=== PATIENT | male | born 1960 | race Caucasian/White ===

== ENCOUNTER 2018-07-30 15:40 | Inpatient (IN) | payer OTHER ==
[~2018-07-30] VITALS: Ht 157.5 cm; Wt 59.4 kg
--- NOTE | 2018-07-30 15:45 | NUR ---
PT ANOOP TUCKER FROM [facility] FOR LOW BLOOD PRESSURE, PT IS AAOX0, MECH DEPENDENT, RT AT BEDISIDE FOR VENT SET UP, HOOKED TO DIRECTOR LEARNING SERVICES, V/S STABLE, KEPT RESTED AND COMFORTABL, WILL CONTINUE TO MONITOR.
--- NOTE | 2018-07-30 15:50 | NUR ---
SEEN AND EXAMINED BY DR. BOLES.
--- NOTE | 2018-07-30 16:00 | NUR ---
LABS DRAWNED AND SENT TO LAB.
[2018-07-30 16:01] VITALS: BP 101/63
[2018-07-30] MEDS ORDERED: IV NS 0.9% 250 ML IV ONE ×2 (16:30→18:00)
[2018-07-30 16:39] LABS: BASOPHILS % (AUTO) 0.2 % (0.0-2.0); EOSINOPHILS % (AUTO) 11.3 % (0.0-6.0); HEMATOCRIT 28 % (39-51); HEMOGLOBIN 9.1 g/dL (13.5-17.5); LYMPHOCYTES # (AUTO) 2.1 /CMM (0.8-4.8); LYMPHOCYTES % (AUTO) 17.6 % (20.0-44.0); MEAN CORPUSCULAR HGB CONC 33 g/dl (31.0-36.0); MEAN CORPUSCULAR VOLUME 95 fL (80-96); MONOCYTES # (AUTO) 0.8 /CMM (0.1-1.30); MONOCYTES % (AUTO) 6.5 % (2.0-12.0); NEUTROPHILS # (AUTO) 7.8 /CMM (1.8-8.9); NEUTROPHILS % (AUTO) 64.4 % (43.0-81.0); PLATELET COUNT (AUTO) 466 /CMM (150-450); RED BLOOD CELL COUNT(AUTO) 2.91 MIL/uL (4.5-6.0); WHITE BLOOD COUNT (AUTO) 12.1 K/uL (4.3-11.0)
[2018-07-30 16:57] LABS: ALBUMIN 1.9 g/dL (3.4-5.0); BILIRUBIN,TOTAL 0.2 mg/dL (0.2-1.0); CALCIUM, SERUM 9.2 mg/dL (8.5-10.1); CREATININE 1.5 mg/dL (0.6-1.3); POTASSIUM 2.9 mmol/L (3.5-5.1); TOTAL PROTEIN, SERUM 6.8 g/dL (6.4-8.2)
[2018-07-30 17:07] LABS: APPEARANCE,URINE Slightly Cloudy (CLEAR); BILIRUBIN,URINE Negative (NEGATIVE); BLOOD, URINE Moderate Ery/uL (NEGATIVE); COLOR,URINE Yellow (YELLOW); KETONES,URINE Negative (NEGATIVE); LEUKOCYTE ESTERASE ,URINE Small (NEGATIVE); NITRITE, URINE Negative (NEGATIVE); PH,URINE 5.5 (5.0-8.0); PROTEIN,URINE 100 mg/dl (NEGATIVE); UGLUCOSE Negative (NEGATIVE); UROBILINOGEN,URINE 0.2 EU/dL (0.2)
[2018-07-30] MEDS ORDERED: ZINC220C8 GT (17:20)
[2018-07-30] MEDS ORDERED: OMEP40CA37 GT (17:20)
[2018-07-30] MEDS ORDERED: BISA10SU8 RC (17:20)
[2018-07-30] MEDS ORDERED: ACET-868 GT (17:20)
[2018-07-30] MEDS ORDERED: DOCU50LI GT (17:20)
[2018-07-30] MEDS ORDERED: AMIO200T4 GT (17:20)
[2018-07-30] MEDS ORDERED: METO5SOL GT (17:20)
[2018-07-30] MEDS ORDERED: HYDR-4384 GT (17:20)
[2018-07-30] MEDS ORDERED: FERR300L GT (17:20)
[2018-07-30] MEDS ORDERED: METO25TA20 GT (17:20)
[2018-07-30] MEDS ORDERED: FOLI0.8T2 GT (17:20)
[2018-07-30] MEDS ORDERED: ONDA4TAB5 GT (17:20)
[2018-07-30] MEDS ORDERED: NA P133E RC (17:20)
[2018-07-30] MEDS ORDERED: BACL10TA GT (17:20)
[2018-07-30] MEDS ORDERED: HEPA50008 SQ (17:20)
[2018-07-30] MEDS ORDERED: MAGN400O6 GT (17:20)
[2018-07-30 17:24] VITALS: BP 99/61
[2018-07-30 17:34] LABS: BACTERIA,URINE Few /HPF (None Seen); SQUAMOUS EPITHELIAL CELL,UR Few /HPF (None Seen)
[2018-07-30 17:41] LABS: BAND % (MANUAL) 17 % (0.0-5.0); EOSINOPHILS % (MANUAL) 8 % (0-4); LYMPHOCYTES % (MANUAL) 14 % (16-48); MONOCYTES % (MANUAL) 9 % (0-11.0); NEUTROPHILS % (MANUAL) 52 (42-76)
[2018-07-30] MEDS ORDERED: PIPERACILLIN /TAZOBACTAM 3.375 G in IV D5W 50 ML IV ONE (18:00)
[2018-07-30] MEDS ORDERED: VANCOMYCIN 1 GM in IV D5W 250 ML IV ONE (18:00)
--- NOTE | 2018-07-30 19:03 | NUR ---
REPORT GIVEN TO CHRISTIANE STILL FOR SHARLENE.
[2018-07-30 19:40] VITALS: BP 101/61
--- NOTE | 2018-07-30 19:41 | NUR ---
[facility], NO RESP DISTRESS OR SOB NOTED. SX'D FOR MOD AMT OF PALE YELLOW SECRETIONS. ALARMS ARE SET AND AUDIBLE. VENT PLUGGED INTO RED OUTLET. AMBU BAG BEDSIDE. WILL CONTINUE TO MONITOR. Addendum: 07/30/18 at 1943 by ZANDRA NIXON RT Amended: Links added.
--- NOTE | 2018-07-30 19:53 | NUR ---
VENT SETTINGS: RATE 16 TV 500ML O2 40% PEEP 5 CMH20
[2018-07-30] MEDS ORDERED: ONDANSETRON HCL/PF 4 MG/2 ML VIAL IVP PRN (20:00)
[2018-07-30] MEDS ORDERED: MAG HYDROX/AL HYDROX/SIMETH 30 ML UDC GT PRN (20:00)
[2018-07-30] MEDS ORDERED: IPRATROPIUM NEB FS 0.5 MG/2.5 ML AMPUL.NEB NEB PRN (20:30)
[2018-07-30] MEDS ORDERED: DEXTROSE 50%-WATER 50 ML DISP.SYRIN IV PRN (20:30)
[2018-07-30] MEDS ORDERED: ALBUTEROL FS 2.5 MG/0.5 ML VIAL.NEB NEB PRN (20:30)
[2018-07-30] MEDS ORDERED: IV NS 0.9% 1,000 ML IV PRN (20:30)
[2018-07-30] MEDS: PIPERACILLIN /TAZOBACTAM 2.25 G in IV D5W 50 ML IV SCH (21:00)
--- NOTE | 2018-07-30 21:00 | NUR ---
REPORT GIVEN TO CHRISTIANE TRACY FOR SHARLENE
[2018-07-30 21:25] VITALS: BP 103/65
[2018-07-30 21:41] VITALS: BP_SYST 101; BP_SYST 94; BP_DIAS 59; BP_DIAS 61
[2018-07-30 21:43] VITALS: BP 103/65
[2018-07-30] MEDS: IV NS 0.9% 1,000 ML IV PRN (22:17)
[2018-07-30] MEDS: HEPARIN SODIUM, PORCINE 5000 UNITS/1 ML VIAL SQ SCH (22:18)
--- NOTE | 2018-07-30 22:21 | NUR ---
TD RN NOTES CALLED PHARMACY REGARDING ZOSYN. PER PHARMACY VÍCTOR, SKIP THE DOSE FOR NOW AND GIVE IN AM.
--- NOTE | 2018-07-30 22:39 | NUR ---
TD RN NOTES RECEIVED PT ON BED. A/O X1. [facility] SETTING SATURATING WELL. NO RESPIRATORY DISTRESS NOTED. IV ACCESS ON RFA G20 NS @ 75CC/HR, HD ACCESS ON RIC AV SHUNT. GTUBE SITE, NO REDNESS NOTED. PT NPO FOR NOW. HEAD OF BED ELEVATED. SIDE RAILS UP. CALL LIGHT WITHIN REACH. BED ALARM ON. WILL CONTINUE TO MONITOR PT CLOSELY.
[2018-07-30] MEDS ORDERED: NEPRO 1,000 ML BOTTLE GT PRN (23:00)
[2018-07-30] MEDS: BLOOD SUGAR DIAGNOSTIC 1 EACH STRIP IN SCH (23:21)
[2018-07-31 04:00] VITALS: BP 112/70
[2018-07-31] MEDS ORDERED: PIPERACILLIN /TAZOBACTAM 2.25 G VIAL IV ONE (04:24)
[2018-07-31] MEDS: PIPERACILLIN /TAZOBACTAM 2.25 G in IV D5W 50 ML IV SCH ×3 (05:03→21:12)
[2018-07-31] MEDS: BLOOD SUGAR DIAGNOSTIC 1 EACH STRIP IN SCH ×3 (05:05→17:28)
--- NOTE | 2018-07-31 05:15 | NUR ---
TD RN NOTES SPOKE TO [facility], PER NURSE KEEP [facility] VENT FOR NOW AND BRING TOGETHER WITH THE PT WHEN D/C.
[2018-07-31 06:32] LABS: BASOPHILS # (AUTO) 0.1 /CMM (0.0-0.2); BASOPHILS % (AUTO) 1.2 % (0.0-2.0); EOSINOPHILS % (AUTO) 8.9 % (0.0-6.0); HEMATOCRIT 27 % (39-51); HEMOGLOBIN 9.1 g/dL (13.5-17.5); LYMPHOCYTES # (AUTO) 1.6 /CMM (0.8-4.8); LYMPHOCYTES % (AUTO) 15.2 % (20.0-44.0); MEAN CORPUSCULAR HGB CONC 34 g/dl (31.0-36.0); MEAN CORPUSCULAR VOLUME 95 fL (80-96); MONOCYTES # (AUTO) 0.7 /CMM (0.1-1.30); MONOCYTES % (AUTO) 6.4 % (2.0-12.0); NEUTROPHILS # (AUTO) 7.3 /CMM (1.8-8.9); NEUTROPHILS % (AUTO) 68.3 % (43.0-81.0); PLATELET COUNT (AUTO) 389 /CMM (150-450); RED BLOOD CELL COUNT(AUTO) 2.84 MIL/uL (4.5-6.0); WHITE BLOOD COUNT (AUTO) 10.8 K/uL (4.3-11.0)
--- NOTE | 2018-07-31 06:45 | NUR ---
TD RN NOTES NO ACUTE CHANGES NOTED DURING THE SHIFT. PROVIDED COMFORT AND SAFETY. WILL ENDORSE TO THE AM NURSE FOR CONTINUITY OF CARE.
[2018-07-31 07:16] LABS: CALCIUM, SERUM 9.1 mg/dL (8.5-10.1); CREATININE 1.3 mg/dL (0.6-1.3); MAGNESIUM 2.2 mg/dL (1.8-2.4); PHOSPHORUS 3.1 mg/dL (2.5-4.9)
[2018-07-31 07:39] LABS: POTASSIUM 2.8 mmol/L (3.5-5.1)
--- NOTE | 2018-07-31 07:40 | NUR ---
RT PT REC'D TRACHED ON [facility] VENT ON AC MODE, NO RESP DISTRESS OR SOB NOTED AT THIS TIME. SX'D FOR SCANT AMT OF PALE YELLOW SECRETIONS. ALARMS ARE SET AND AUDIBLE. VENT PLUGGED INTO RED OUTLET. AMBU BAG BEDSIDE. WILL CONTINUE TO MONITOR. Addendum: 07/31/18 at 0741 by VICTOR M RAM RT Amended: Links added.
--- NOTE | 2018-07-31 07:42 | NUR ---
DESTINEE RN NOTE RECEIVED PATIENT IN BED, OBTUNDED M WITH TRACH TO VENT SETTING ORDERED , AMBU BAG AT HOB AT ALL TIME , ON TELE MONITOR SR HR 89 , WITH ELLER CATH TO GRAVITY WITH YELLOW COLOR URINE , ON G TUBE FEEDING ORDERED, KEEP HOB ELEVATED AT ALL TIME , K 2.[address] BURNETTE ORDERED KCL 40 VIA G TUBE TIME ONE ORDER CARRIED OUT BED IN LOWEST AND LOCKED POSITION , LT UA AV SHUNT IN PACE WILL CONT TO MONITOR CLOSELY
[2018-07-31 08:00] VITALS: BP 107/62
[2018-07-31] MEDS ORDERED: POTASSIUM CHLORIDE 20 MEQ POWDER PACKET GT ONE (08:00)
[2018-07-31] MEDS: PANTOPRAZOLE 40 MG VIAL IV SCH (08:04)
[2018-07-31] MEDS: HEPARIN SODIUM, PORCINE 5000 UNITS/1 ML VIAL SQ SCH ×2 (08:05→21:14)
[2018-07-31] MEDS ORDERED: FEE PK DOSING 1 MIN EA MC ONE (08:21)
--- NOTE | 2018-07-31 09:09 | NUR ---
WOUND CARE CONSULT: PT HAVING DIALYSIS AT THIS TIME. REVIEWED MULTIPLE ADMISSION PHOTOS SHOWING MULTIPLE WOUNDS, PRESENT ON ADMISSION. RECOMMEND SURGICAL CONSULT AND DPM CONSULT. DR REBECCA CAVANAUGH NOTIFIED OF SURGICAL CONSULT REQUEST AND DR DOWNING NOTIFIED OF DPM CONSULT REQUEST. WILL SEE PT PT CONDITION PERMITS. FIRST STEP LOW AIRLOSS MATTRESS ORDERED. RECOMMENDATIONS MADE FOR SKIN PROTECTION AND DISCUSSED WITH NURSING STAFF. MD IN AGREEMENT WITH PLAN OF CARE. Addendum: 07/31/18 at 1104 by DOT VALLEJO WNDNU RECOMMENDATIONS FOR WOUND CARE WERE MADE BASED ON PHOTO DOCUMENTATION.
[2018-07-31 09:15] LABS: THYROID STIMULATING HORMONE 2.159 uIU/mL (0.358-3.74)
[2018-07-31] MEDS ORDERED: Z GUARD REMEDY 2 OZ OINT TP PRN (09:30)
--- NOTE | 2018-07-31 09:50 | NUR ---
RT NOTE PATIENT CURRENTLY ON DIALYSIS. ABG ORDER NOT DONE.
--- NOTE | 2018-07-31 10:00 | NUR ---
JAMES RN NOTE ON HD AT THIS TIME
[2018-07-31] MEDS: Z GUARD REMEDY 2 OZ OINT TP SCH (10:14)
[2018-07-31] MEDS ORDERED: HYDROGEL DRESSING 90 GM TUBE TP PRN (11:00)
--- NOTE | 2018-07-31 11:30 | NUR ---
DESTINEE RN NOTE HD COMPLETED, NO FLUIDS OUT, BP 104/78 HR 90
[2018-07-31 12:00] VITALS: BP 97/52
[2018-07-31] MEDS: HYDROGEL DRESSING 90 GM TUBE TP SCH (12:31)
[2018-07-31 12:53] LABS: ABG BASE EXCESS 2.4 mmol/L; ABG OXYGEN SATURATION 98.9 % (92.0-98.5); ABG PCO2 35.9 mmHg (35.0-45.0); ABG PH 7.477 (7.350-7.450); ABG PO2 223.7 mmHg (75.0-100.0); AaDO2 20.2 mmHg; COHb 0.2 % (0.5-1.5); MetHb 0.6 % (0.0-1.5); O2Hb 98.1 % (94.0-97.0); PEEP,BG 5 cm H2O; SITE, ABG Right Radial; VENT MODE, BG AC 16 500 40% +5; VT, ABG 500 mL
[2018-07-31] MEDS: IV NS 0.9% 1,000 ML IV PRN (14:20)
--- NOTE | 2018-07-31 14:22 | NUR ---
DESTINEE GRANDE NOTE SEEN BY PRITESH GRANDE TITLE SEARCH MANAGER AWARE THAT T EARLIER T 99.7 K 2.8 ALSO AWARE THAT K WAS REPLACED STATED THAT WILL CHECK IT OUT NO NEW ORDER AT THIS TIME AWARE ABG RESULT FOR TODAY WILL CONT TO MONITOR CLOSELY
[2018-07-31] MEDS: VANCOMYCIN 500 MG in IV D5W 100 ML IV PRN (14:29)
--- NOTE | 2018-07-31 15:25 | NUR ---
DESTINEE RN NNOTE SEEN BY PAT SURGERY RN SCHEDULING ADMINISTRATOR WOUND CARE DONE WITH NEW TX ORDER WILL BE GIVEN
--- NOTE | 2018-07-31 15:30 | NUR ---
DESTINEE RN NOTE PER DIETARY OK TO DO G TUBE FEEDING AT 40 ML PER HOUR
[2018-07-31 16:00] VITALS: BP 91/50
--- NOTE | 2018-07-31 18:25 | NUR ---
DESTINEE RN NOTE ALL NEEDS ATTENDED, CONT ON GTUBE FEEDING AT 40 ML PER HOUR NO,RESIDUAL KEEP HOB ELEVATED AT ALL TIME .KEEP CLEAN DRY, ON [employer] MATRASS PLACED ORDERED ,WILL CONT TO MONITOR CLOSELY
--- NOTE | 2018-07-31 19:45 | NUR ---
PATIENT RECEIVED TRACHED PORTEX 8 ON MECHANICAL VENTILATION WITH NOTED SETTINGS. AMBU BAG @ BEDSIDE. VENT PLUGGED TO RED OUTLET. ALARMS ON AND AUDIBLE. SUCTIONED SMALL AMOUNT OF THICK YELLOW SECRETIONS. NO RESPIRATORY DISTRESS NOTED AT THIS TIME. WILL MONITOR T/O SHIFT.
[2018-07-31 20:00] VITALS: BP 92/48
--- NOTE | 2018-07-31 20:00 | NUR ---
DESTINEE/RN NOTES: RECEIVED PT. IN BED W/HOB ELEVATED. OBTUNDED. ON MECH. VENT. TOLERATING SETTING WELL. ON TELE MONITOR W/ SR. ON ASPIRATION PRECAUTION. ON GTF TOLERATING WELL W/ NO RESIDUAL NOTED. HAD DIALYSIS TODAY W/ NO FLUIDS OUT. HAS RIC AV SHUNT IN PLACE. W/ F/C INPLACE DRAINING TO SAGAR YELLOW URINE. HAS MULTIPLE WOUNDS. INCONTINENT OF B/B. TURNED AND REPOSITIONED. WILL CONTINUE TO MONITOR.
[2018-08-01] VITALS: BP 91/49
[2018-08-01] MEDS: BLOOD SUGAR DIAGNOSTIC 1 EACH STRIP IN SCH ×5 (00:20→23:57)
[2018-08-01 04:00] VITALS: BP 127/53
[2018-08-01] MEDS: PIPERACILLIN /TAZOBACTAM 2.25 G in IV D5W 50 ML IV SCH ×3 (04:51→20:59)
[2018-08-01] MEDS: IV NS 0.9% 1,000 ML IV PRN ×2 (04:55→19:42)
--- NOTE | 2018-08-01 07:23 | NUR ---
DESTINEE/RN NOTES: REPORT GIVEN TO NEXT SHIFT NURSE FOR SHARLENE.
--- NOTE | 2018-08-01 07:30 | NUR ---
RN NOTES RECEIVED PATIENT, OBTUNDED. VENT DEPENDENT, TOLERATING CURRENT SETTINGS. NO SOB AND DISTRESS NOTED. SINUS RHYTHM ON THE MONITOR, HR ON THE 80'S. WITH ONGOING GTF OF NEPHRO AT 35 CC/HR. SITE. GT PLACEMENT CONFIRMED BY AUSCULTATION AND ASPIRATING GASTRIC CONTENT:NO GASTRIC RESIDUAL TAKEN AT THIS TIME. RFA G20 IN PLACE AND INTACT SITE CLEAN ,DRY AND INTACT. NO INFILTRATION NOTED. FLUSHING WELL. RIC AV SHUNT: WITH BRUIT AND THRILL. ELLER CATH DRAINING VIA GRAVITY, IN PLACE AND INTACT. SAFETY MEASURES OBSERVED AND MAINTAINED. HOB ELEVATED FOR ASPIRATION PRECAUTION. BED LOW AND LOCKED POSITION. CALL LIGHT WITHIN REACH. WILL CONTINUE TO MONITOR PATIENT
[2018-08-01 08:00] VITALS: BP_SYST 90; BP_DIAS 47; BP_DIAS 77
[2018-08-01] MEDS: HEPARIN SODIUM, PORCINE 5000 UNITS/1 ML VIAL SQ SCH ×2 (08:48→21:01)
[2018-08-01] MEDS: PANTOPRAZOLE 40 MG VIAL IV SCH (08:48)
[2018-08-01] MEDS: HYDROGEL DRESSING 90 GM TUBE TP SCH (08:49)
[2018-08-01] MEDS: Z GUARD REMEDY 2 OZ OINT TP SCH (08:49)
[2018-08-01 12:00] VITALS: BP 102/59
--- NOTE | 2018-08-01 15:30 | NUR ---
DESTINEE RN NOTES REPORT TAKEN FROM CHRISTIANE VELAZCO FOR SHARLENE.PT CAN OPEN THE EYES [facility] VENTILATOR.ON SR.NO SOB AND ACUTE DISTRESS NOTED.FC IS IN PLACE.WITH G TUBE FEEDING.TOLERATING WELL.IV LINE IS ON RFA G20 AND LEFT UA AV SHUNT.WILL CONTINUE TO MONITOR THE PT CLOSELY.
--- NOTE | 2018-08-01 15:45 | NUR ---
RN NOTES ENDORSED PATIENT TO CHRISTIANE SHERWOOD FOR CONTINUITY OF CARE
[2018-08-01 16:00] VITALS: BP 101/56
[2018-08-01] MEDS: LACTOBACILLUS RHAMNOSUS GG 1 EACH CAP.SPRINK PO SCH (16:10)
--- NOTE | 2018-08-01 16:24 | NUR ---
RT NOTE: PATIENT RECEIVED TRACH ON MECHANICAL VENT. ALARMS VERIFIED AND AUDIBLE. SUCTIONED LARGE AMOUNT OF THICK ORTIZ SECRETIONS. VENT PLUGGED INTO RED OUTLET. AMBU BAG AT [facility].
[2018-08-01 17:12] LABS: BASOPHILS # (AUTO) 0.1 /CMM (0.0-0.2); BASOPHILS % (AUTO) 0.6 % (0.0-2.0); EOSINOPHILS % (AUTO) 8.2 % (0.0-6.0); HEMATOCRIT 24 % (39-51); LYMPHOCYTES # (AUTO) 1.3 /CMM (0.8-4.8); LYMPHOCYTES % (AUTO) 13.8 % (20.0-44.0); MEAN CORPUSCULAR HGB CONC 33 g/dl (31.0-36.0); MEAN CORPUSCULAR VOLUME 96 fL (80-96); MONOCYTES # (AUTO) 0.8 /CMM (0.1-1.30); MONOCYTES % (AUTO) 8.3 % (2.0-12.0); NEUTROPHILS # (AUTO) 6.7 /CMM (1.8-8.9); NEUTROPHILS % (AUTO) 69.1 % (43.0-81.0); PLATELET COUNT (AUTO) 420 /CMM (150-450); RED BLOOD CELL COUNT(AUTO) 2.53 MIL/uL (4.5-6.0); WHITE BLOOD COUNT (AUTO) 9.8 K/uL (4.3-11.0)
[2018-08-01 17:26] LABS: CALCIUM, SERUM 8.9 mg/dL (8.5-10.1); CREATININE 0.9 mg/dL (0.6-1.3); POTASSIUM 2.9 mmol/L (3.5-5.1)
--- NOTE | 2018-08-01 19:20 | NUR ---
DESTINEE/RN CLOSING NOTES PATIENT IN BED RESTING COMFORTABLY. ON TELE, HR IS 80 WITH SR. PATIENT ON VENTILATOR WITH PRESCRIBED SETTINGS. O2 SATURATION NOTED 99. TRACH INTACT, PATENT, SECURED WITH TRACH TIE. PATIENT OBTUNDED, NON VERBAL. NO S/S OF ACUTE DISTRESS NOTED. RESPIRATION EVEN AND UNLABORED. NO SHORTNESS OF BREATH NOTED. NO S/S OF PAIN OR DISCOMFORT NOTED. IV SITES ON RIGHT FOREARM GAUGE 20 AND LEFT UPPER ARM AV SHUNT NOTED WITH NO S/S OF INFECTION. ALL DUE MEDS GIVEN ORDER. PATIENT TOLERATED WELL. PEG TUBE IN PLACE. PATENT. NO RESIDUAL NOTED. HOB KEPT ELEVATED AT ALL TIME SUCTIONED PATIENT NEEDED. SAFETY MEASURES MAINTAINED. BED AT THE LOWEST POSITION. CALL LIGHT WITHIN REACH. ENDORSED TO NIGHG SHIFT RN FOR SHARLENE
--- NOTE | 2018-08-01 19:30 | NUR ---
RN OPENING NOTES RECEIVED BEDSIDE REPORT, PATIENT IN BED, OBTUNDED AND NON VERBAL. ON VENT, SATING GOOD >90%. ON TELE MONITOR, SR. HAS A ELLER CATH DRAINING THROUGH GRAVITY, YELLOW AND CLEAR URINE. HAS A GTF WITH NEPRO RUNNING AT 40ML/HR. LAST BLOOD SUGAR WAS 117, NO INSULIN COVERAGE WAS GIVEN PER DAY SHIFT. MULTIPLE WOUNDS NOTED FROM CHART. BED LOCKED AND IN LOW POSITION. WILL CONT TO MONITOR CLOSELY.
[2018-08-01 20:00] VITALS: BP 97/55
[2018-08-02] VITALS (9 sets, daily range): BP systolic 93–130; BP diastolic 35–82
[2018-08-02] MEDS: NEPRO 1,000 ML BOTTLE GT PRN (04:24)
[2018-08-02] MEDS: PIPERACILLIN /TAZOBACTAM 2.25 G in IV D5W 50 ML IV SCH ×3 (05:05→21:05)
[2018-08-02] MEDS: HYDROCODONE/APAP 5/325MG 1 EACH TABLET GT PRN (05:23)
--- NOTE | 2018-08-02 05:23 | NUR ---
RN NOTE ADMINISTERED NORCO FOR PATIENT AFTER WOUND CARE.
[2018-08-02] MEDS: BLOOD SUGAR DIAGNOSTIC 1 EACH STRIP IN SCH ×3 (06:31→18:09)
--- NOTE | 2018-08-02 07:02 | NUR ---
RN CLOSING NOTE PATIENT IN BED, OBTUNDED. ON TELE MONITOR, SR. HAS A ELLER WITH CLEAR AND YELLOW URINE. ON VENT WITH SPO2 100%. ON GTF NEPRO AT 40 ML/HR, NO RESIDUAL. NO INSULIN COVERAGE GIVEN. NORCO GIVEN AT 0530 FOR DISCOMFORT. VANCO TROUGH AT 0600. WILL ENDORSE TO DAY SHIFT FOR CONT OF CARE
[2018-08-02 07:09] LABS: BASOPHILS # (AUTO) 0.1 /CMM (0.0-0.2); BASOPHILS % (AUTO) 0.7 % (0.0-2.0); EOSINOPHILS % (AUTO) 9.5 % (0.0-6.0); HEMATOCRIT 23 % (39-51); HEMOGLOBIN 7.6 g/dL (13.5-17.5); LYMPHOCYTES # (AUTO) 1.3 /CMM (0.8-4.8); LYMPHOCYTES % (AUTO) 15.2 % (20.0-44.0); MEAN CORPUSCULAR HGB CONC 33 g/dl (31.0-36.0); MEAN CORPUSCULAR VOLUME 97 fL (80-96); MONOCYTES # (AUTO) 0.7 /CMM (0.1-1.30); NEUTROPHILS # (AUTO) 5.6 /CMM (1.8-8.9); NEUTROPHILS % (AUTO) 66.6 % (43.0-81.0); PLATELET COUNT (AUTO) 439 /CMM (150-450); WHITE BLOOD COUNT (AUTO) 8.4 K/uL (4.3-11.0)
[2018-08-02 07:29] LABS: CALCIUM, SERUM 8.8 mg/dL (8.5-10.1); MAGNESIUM 1.9 mg/dL (1.8-2.4); PHOSPHORUS 2.6 mg/dL (2.5-4.9); POTASSIUM 3.5 mmol/L (3.5-5.1)
--- NOTE | 2018-08-02 08:00 | NUR ---
TD/RN AM SHIFT INITIAL NOTES RECEIVED PT ASLEEP IN BED, PT NON-VERBAL, OPEN EYES. NO GRIMACING, FEVER OR ACUTE RESPIRATORY DISTRESS NOTED. VENTILATOR DEPENDENT WITH RATES SET PRESCRIBED, SATURATING @ 95% RESPIRATIONS EVEN AND UNLABORED, LUNG SOUNDS CLEAR. ON TELE MONITORING, SINUS RHYTHM, HR 88. PT WITH ON GOING IV INFUSION OF NS @ 75CC/HR, , IV SITE, FLUSHED, PATENT WITH NO S/S OF INFECTION. AV SHUNT WITH DRESSING INTACT, CLEAN & DRY, POSITIVE OF THRILL & BRUIT. GTF ON GOING @ 40CC/HR, NO GASTRIC RESIDUAL NOTED, FLUSHED, PATENT. ELLER CATHETER INTACT NOTED WITH CLEAR YELLOW URINE OUTPUT. PT IS COMFORTABLE AT THIS TIME. SCHEDULED AM MEDS TO BE GIVEN. CL WITHIN REACHED AND SAFETY MAINTAINED. ON GOING MONITORING.
--- NOTE | 2018-08-02 08:30 | NUR ---
TD/SENIOR QUANTITY SURVEYOR TX PT STARTED DIALYSIS TX. ON GOING MONITORING.
[2018-08-02] MEDS: HEPARIN SODIUM, PORCINE 5000 UNITS/1 ML VIAL SQ SCH ×2 (09:26→21:06)
[2018-08-02] MEDS: Z GUARD REMEDY 2 OZ OINT TP SCH (09:26)
[2018-08-02] MEDS: LACTOBACILLUS RHAMNOSUS GG 1 EACH CAP.SPRINK PO SCH ×2 (09:26→16:45)
[2018-08-02] MEDS: HYDROGEL DRESSING 90 GM TUBE TP SCH (09:26)
[2018-08-02] MEDS: PANTOPRAZOLE 40 MG VIAL IV SCH (09:26)
--- NOTE | 2018-08-02 10:30 | NUR ---
TELE1/RN HD TX - COMPLETED NO FLUID REMOVED, PT TOLERATED TX. BP 100/35, HR 90. ON GOING MONITORING.
[2018-08-02] MEDS: IV NS 0.9% 1,000 ML IV PRN (11:23)
[2018-08-02] MEDS ORDERED: VANCOMYCIN 1 GM in IV D5W 250 ML IV ONE (12:00)
--- NOTE | 2018-08-02 12:00 | NUR ---
TELE1/RN NOON ROUNDS NO ACUTE CHANGE OF CONDITION. ON GOING MONITORING.
--- NOTE | 2018-08-02 18:00 | NUR ---
TELE1/RN AFTERNOON ROUNDS PM CARE PROVIDED, NO ACUTE CHANGE OF CONDITION. ON GOING MONITORING.
--- NOTE | 2018-08-02 19:31 | NUR ---
TELE1/RN AM SHIFT END NOTES ALL NEEDS MET. NO ACUTE CHANGE OF CONDITION NOTED DURING THE SHIFT. PT ENDORSED TO PM NURSE TO CONTINUE CARE. CL WITHIN REACHED AND SAFETY MAINTAINED.
[2018-08-03] VITALS (8 sets, daily range): BP systolic 87–109; BP diastolic 51–64
[2018-08-03] MEDS: BLOOD SUGAR DIAGNOSTIC 1 EACH STRIP IN SCH ×5 (00:09→23:44)
[2018-08-03] MEDS: IV NS 0.9% 1,000 ML IV PRN (01:01)
[2018-08-03] MEDS: NEPRO 1,000 ML BOTTLE GT PRN (03:38)
[2018-08-03] MEDS: PIPERACILLIN /TAZOBACTAM 2.25 G in IV D5W 50 ML IV SCH ×3 (04:08→20:38)
[2018-08-03] MEDS: HYDROCODONE/APAP 5/325MG 1 EACH TABLET GT PRN (04:13)
--- NOTE | 2018-08-03 08:00 | NUR ---
TELE1/RN AM SHIFT INITIAL NOTES RECEIVED PT ASLEEP IN BED, PT NON-VERBAL, RARELY OPEN EYES. NO GRIMACING, FEVER OR ACUTE RESPIRATORY DISTRESS NOTED. VENTILATOR DEPENDENT WITH RATES SET PRESCRIBED, SATURATING @ 100% RESPIRATIONS EVEN AND UNLABORED, LUNG SOUNDS CLEAR. ON TELE MONITORING, SINUS RHYTHM, HR 90. PT WITH ON GOING IV INFUSION OF NS @ 75CC/HR, , IV SITE, FLUSHED, PATENT WITH NO S/S OF INFECTION. AV SHUNT WITH DRESSING INTACT, CLEAN & DRY, POSITIVE OF THRILL & BRUIT. GTF ON GOING @ 40CC/HR, NO GASTRIC RESIDUAL NOTED, FLUSHED, PATENT. ELLER CATHETER INTACT NOTED WITH CLEAR YELLOW URINE OUTPUT. PT IS COMFORTABLE AT THIS TIME. SCHEDULED AM MEDS TO BE GIVEN. CL WITHIN REACHED AND SAFETY MAINTAINED. ON GOING MONITORING.
[2018-08-03] MEDS: LACTOBACILLUS RHAMNOSUS GG 1 EACH CAP.SPRINK PO SCH ×2 (08:28→17:18)
[2018-08-03] MEDS: PANTOPRAZOLE 40 MG VIAL IV SCH (08:28)
[2018-08-03] MEDS: Z GUARD REMEDY 2 OZ OINT TP SCH (08:29)
[2018-08-03] MEDS: HYDROGEL DRESSING 90 GM TUBE TP SCH (08:29)
[2018-08-03] MEDS: HEPARIN SODIUM, PORCINE 5000 UNITS/1 ML VIAL SQ SCH ×2 (08:30→20:39)
[2018-08-03] MEDS ORDERED: PIPE3.379 IV (10:02)
[2018-08-03] MEDS ORDERED: MIDO10TA PO (10:05)
--- NOTE | 2018-08-03 12:00 | NUR ---
TELE1/RN NOON ROUNDS NO ACUTE CHANGE OF CONDITION. ON GOING MONITORING.
[2018-08-03] MEDS: MIDODRINE HCL (5MG) 5 MG TABLET PO SCH ×2 (12:36→17:18)
[2018-08-03] MEDS ORDERED: LIDOCAINE 2%-EPI 1:100,000 30 ML VIAL TP ONE (13:30)
[2018-08-03] MEDS ORDERED: SILVER NITRATE APPLICATOR 1 EA BOX TP ONE (13:30)
--- NOTE | 2018-08-03 18:00 | NUR ---
TELE1/RN PM ROUNDS PM CARE PROVIDED, NO HANGE OF CONDITION. ON GOING MONITORING.
--- NOTE | 2018-08-03 19:10 | NUR ---
TELE/RN INITIAL NOTES RECEIVED PT IN BED, OBTUNDED. WITH INTACT TRACH ON MECH VENT, [id number]%. SR ON TELE. RFOOR G22 PATENT, C/D/I. RIC AV SHUNT C/D/I WITH (+) BRUIT AND THRILL. GTUBE INTACT AND IN PLACED, WITH ONGOING GTF NEPRO AT 40 ML/HR, TOLERATING WELL. HOB ELEVATED. F/C INTACT AND IN PLACED, DRAINING BY GRAVITY. SAFETY MEASURES AND ASPIRATION PRECAUTION IN PLACED. WILL CONT TO MONITOR
--- NOTE | 2018-08-03 19:45 | NUR ---
TELE1/RN AM SHIFT END NOTES ALL NEEDS MET. NO CHANGE OF CONDITION NOTED DURING THE SHIFT. PT ENDORSED TO PM NURSE TO CONTINUE CARE.
--- NOTE | 2018-08-03 21:00 | NUR ---
RN NOTES 2100 DUE HEPARIN SQ HELD,PT IS FOR EXCISIONAL DEBRIDEMENT OF RIGHT ISCHIAL WOUND
[2018-08-04] VITALS: BP 92/47
[2018-08-04 04:00] VITALS: BP 97/54
[2018-08-04] MEDS: NEPRO 1,000 ML BOTTLE GT PRN (05:01)
[2018-08-04] MEDS: PIPERACILLIN /TAZOBACTAM 2.25 G in IV D5W 50 ML IV SCH ×3 (05:01→21:20)
[2018-08-04] MEDS: BLOOD SUGAR DIAGNOSTIC 1 EACH STRIP IN SCH ×3 (05:36→18:05)
--- NOTE | 2018-08-04 06:43 | NUR ---
RN NOTES PT IN STABLE CONDITION. NO ACUTE CHANGES THROUGHOUT SHIFT. ALL NEEDS ANTICIPATED. SAFETY MEASURES AND ASPIRATION PRECAUTION OBSERVED AT ALL TIMES. ENDORSED TO AM SHIFT RN FOR SHARLENE
[2018-08-04 07:04] LABS: CALCIUM, SERUM 8.5 mg/dL (8.5-10.1); MAGNESIUM 1.7 mg/dL (1.8-2.4); PHOSPHORUS 3.1 mg/dL (2.5-4.9); POTASSIUM 3.1 mmol/L (3.5-5.1)
[2018-08-04 07:36] LABS: BASOPHILS # (AUTO) 0.1 /CMM (0.0-0.2); BASOPHILS % (AUTO) 0.8 % (0.0-2.0); HEMATOCRIT 24 % (39-51); LYMPHOCYTES # (AUTO) 1.4 /CMM (0.8-4.8); LYMPHOCYTES % (AUTO) 17.4 % (20.0-44.0); MEAN CORPUSCULAR HGB CONC 33 g/dl (31.0-36.0); MEAN CORPUSCULAR VOLUME 98 fL (80-96); MONOCYTES # (AUTO) 0.8 /CMM (0.1-1.30); MONOCYTES % (AUTO) 10.1 % (2.0-12.0); NEUTROPHILS # (AUTO) 4.7 /CMM (1.8-8.9); NEUTROPHILS % (AUTO) 59.7 % (43.0-81.0); PLATELET COUNT (AUTO) 353 /CMM (150-450); WHITE BLOOD COUNT (AUTO) 7.9 K/uL (4.3-11.0)
--- NOTE | 2018-08-04 07:45 | NUR ---
RT Pt received with a Portex 8 trach on the vent with noted settings. Pt is awake but does not follow commands. Vent alarms are set and audible with BVM by bedside. COSTUME SPECIALIST cuff pressure noted. Vent is plugged into red outlet. No respiratory distress noted at this time. Addendum: 08/04/18 at 0847 by CHRISTELLE IBARRA RT Amended: Links added.
[2018-08-04 08:00] VITALS: BP 83/50
--- NOTE | 2018-08-04 08:00 | NUR ---
TELE1/RN AM SHIFT INITIAL NOTES RECEIVED PT ASLEEP IN BED, PT NON-VERBAL, RARELY OPEN EYES. NO GRIMACING, NO ACUTE DISTRESS NOTED. VENTILATOR DEPENDENT WITH RATES SET PRESCRIBED, SATURATING @ 99% RESPIRATIONS EVEN AND UNLABORED, LUNG SOUNDS CLEAR. ON TELE MONITORING, SINUS RHYTHM, HR 84. IV SITE, FLUSHED, PATENT WITH NO S/S OF INFECTION,SL. AV SHUNT WITH DRESSING INTACT, CLEAN & DRY, POSITIVE OF THRILL & BRUIT. GTF ON GOING @ 40CC/HR, NO GASTRIC RESIDUAL NOTED, FLUSHED, PATENT. ELLER CATHETER INTACT NOTED WITH CLEAR YELLOW URINE OUTPUT. NOTED WITH LOW BP 83/50, ASYMPTOMATIC PT ON MIDODRINE. PT IS COMFORTABLE AT THIS TIME. SCHEDULED AM MEDS TO BE GIVEN. CL WITHIN REACHED AND SAFETY MAINTAINED. ON GOING MONITORING.
[2018-08-04] MEDS: LACTOBACILLUS RHAMNOSUS GG 1 EACH CAP.SPRINK PO SCH ×2 (08:49→16:47)
[2018-08-04] MEDS: HEPARIN SODIUM, PORCINE 5000 UNITS/1 ML VIAL SQ SCH ×2 (08:49→21:22)
[2018-08-04] MEDS: PANTOPRAZOLE 40 MG VIAL IV SCH (08:49)
[2018-08-04] MEDS: MIDODRINE HCL (5MG) 5 MG TABLET PO SCH ×3 (08:49→16:47)
[2018-08-04] MEDS: Z GUARD REMEDY 2 OZ OINT TP SCH (08:50)
[2018-08-04] MEDS: HYDROGEL DRESSING 90 GM TUBE TP SCH (08:50)
[2018-08-04] MEDS: Magnesium 1GM/D5W 100ML PREMIX 100 ML IV SCH ×2 (09:54→11:07)
[2018-08-04] MEDS ORDERED: POTASSIUM CHLORIDE 20 MEQ POWDER PACKET GT SCH (11:30)
[2018-08-04 12:00] VITALS: BP 94/48
--- NOTE | 2018-08-04 14:30 | NUR ---
TELE1/DATA WAREHOUSING SPECIALIST DEBRIDEMENT QUALITY CONTROL INSPECTOR HEADING WITH PT AT BEDSIDE PERFORMED WOUND DEBRIDEMENT, PT TOLERATED PROCEDURE, SPECIMEN SENT OUT FOR CULTURE. ON GOING MONITORING.
[2018-08-04 16:00] VITALS: BP 86/38
[2018-08-04] MEDS ORDERED: VANCOMYCIN 500 MG in IV D5W 100 ML IV ONE (16:30)
--- NOTE | 2018-08-04 17:30 | NUR ---
TELE1/RN G-TUBE RIPPED WHILE GIVING PM MEDICATION TO PT THE G-TUBE RIPPED/TORED PROBABLY D/T THE TUBE BEING OLD. CHARGE NURSE NOTIFIED, AND IN TERM NOTIFIED DR. GUADALUPE FOR CONSULT TO REPLACE G-TUBE. I WAS ABLE TO ATTACHED WHAT IS LEFT OF THE G-TUBE TO FEEDING PUMP. NO ACUTE CHANGE OF CONDITION. MONITORING CONTINUED.
[2018-08-04] MEDS: PROSOURCE / PROSTAT (PYXIS) 30 ML UDC GT SCH (18:01)
--- NOTE | 2018-08-04 19:30 | NUR ---
RN INITIAL NOTES, RECEIVED PATIENT IN BED SLEEPING AT THIS THIS TIME, NON-VERBAL, NO S/S OF PAIN OR DISCOMFORT NOTED, ON MECHANICAL VENTILATOR, TOLERATED SETTINGS WELL, WITH O2 SAT LEVEL AT 100% AT THIS ON TELE MONITORING, SINUS RHYTHM, HR 80S AT THIS TIME, IV SITE SITE IN RIGHT FOOT S/L , PATENT AND INTACT, NO S/S OF INFILTRATION OR ANY ABNORMALITY AT SITE, L AV SHUNT INTACT, CLEAN & DRY, POSITIVE OF THRILL & BRUIT, GTF ON GOING @ 40CC/HR, NO GASTRIC RESIDUAL NOTED, ELLER CATHETER DRAINING YELLOW URINE, PATENCY INTACT, CLEAN AND DRY AND WELL REPOSITIONED AT THIS TIME, CALL LIGHT W/I REACH, WILL CONTINUE TO MONITOR CLOSELY.
--- NOTE | 2018-08-04 19:33 | NUR ---
TELE1/RN AM SHIFT END NOTES ALL NEEDS MET, NO ACUTE CHANGE OF CONDITION NOTED DURING THE SHIFT. PT ENDORSED TO PM NURSE TO CONTINUE CARE. CL WITHIN REACHED AND SAFETY MAINTAINED.
[2018-08-04 20:00] VITALS: BP 116/70
[2018-08-05] VITALS: BP 102/43
[2018-08-05] MEDS: BLOOD SUGAR DIAGNOSTIC 1 EACH STRIP IN SCH ×5 (00:43→23:54)
[2018-08-05] MEDS: INSULIN REGULAR, HUMAN 100 UNIT/ML 3 ML VIAL SQ PRN (00:45)
[2018-08-05 04:00] VITALS: BP 101/40
[2018-08-05] MEDS: PIPERACILLIN /TAZOBACTAM 2.25 G in IV D5W 50 ML IV SCH ×3 (04:19→20:00)
[2018-08-05] MEDS: NEPRO 1,000 ML BOTTLE GT PRN (05:58)
--- NOTE | 2018-08-05 06:42 | NUR ---
RN NOTES, PATIENT IN BED RESTING COMFORTABLY, SO SOB/ACUTE RESPIRATORY DISTRESS NOTED AT THIS TIME, ALL MEDS AND NEEDS DUE, NO SIGNIFICANT CHANGE IN CONDITION AT THIS TIME, WILL ENDORSE FOR CONTINUITY OF CARE TO ONCOMING NURSE.
[2018-08-05 07:15] LABS: CALCIUM, SERUM 8.2 mg/dL (8.5-10.1); CREATININE 1.2 mg/dL (0.6-1.3); MAGNESIUM 2.1 mg/dL (1.8-2.4)
--- NOTE | 2018-08-05 07:30 | NUR ---
HIGH FREQUENCY MILL OPERATOR OPENING NOTES RECEIVED REPORT FROM OPERATIONS INSPECTOR RN. PT IS SLEEPING IN BED WITH NO OBVIOUS SIGNS OF PAIN OR SOB AT PRESENT MOMENT. PT IS ON A VENT SET BY RT. PT IS SUPPOSE TO RECEIVE DIALYSIS TODAY. PT IS SR ON MONITOR. PT HAS A ELLER CATHETER DRAINING TO GRAVITY. BED IS LOCKED AND IN LOWEST POSITION. WILL CONTINUE TO MONITOR PT.
[2018-08-05 07:35] LABS: POTASSIUM 2.7 mmol/L (3.5-5.1)
--- NOTE | 2018-08-05 07:37 | NUR ---
RN NOTES LAB CALLED WITH CRITICAL LAV VALUE. SAKINA TAPIA NOTIFIED OF LOW POTASSIUM.
[2018-08-05 08:00] VITALS: BP 98/51
[2018-08-05] MEDS: MIDODRINE HCL (5MG) 5 MG TABLET PO SCH ×3 (11:28→17:36)
[2018-08-05] MEDS: ACETAMINOPHEN 325 MG TABLET MC PRN (11:29)
[2018-08-05] MEDS: PROSOURCE / PROSTAT (PYXIS) 30 ML UDC GT SCH (11:29)
[2018-08-05] MEDS: LACTOBACILLUS RHAMNOSUS GG 1 EACH CAP.SPRINK PO SCH ×2 (11:29→17:36)
[2018-08-05] MEDS: PANTOPRAZOLE 40 MG VIAL IV SCH (11:29)
[2018-08-05] MEDS: HYDROGEL DRESSING 90 GM TUBE TP SCH (11:31)
[2018-08-05] MEDS: HEPARIN SODIUM, PORCINE 5000 UNITS/1 ML VIAL SQ SCH ×2 (11:31→20:02)
[2018-08-05] MEDS: Z GUARD REMEDY 2 OZ OINT TP SCH (11:32)
[2018-08-05 12:00] VITALS: BP 96/46
[2018-08-05 16:00] VITALS: BP 94/58
--- NOTE | 2018-08-05 17:24 | NUR ---
RT RECD PT TRACHED INTACT AND SECURED ON MECH VENT MARIYA ORDERED SETTING ALARMS ON AND AUDIBLE BAG AND MASK AT HOB SX THICK YELLOW MOD AMOUNT OF SECRETIONS NO RESP DISTRESS THROUGHT SHIIFT WILL CONT TO MONITOR
--- NOTE | 2018-08-05 19:26 | NUR ---
SAFETY SPEC CLOSING NOTES GAVE REPORT TO SANIPRACTIC PHYSICIAN RN. PT IS SLEEPING IN BED WITH NO OBVIOUS SIGNS OF PAIN OR SOB AT PRESENT MOMENT. PT IS ON A VENT SET BY RT. PT HAS HD TODAY. PT IS SR ON MONITOR. PT HAS A ELLRE CATHETER DRAINING TO GRAVITY. BED IS LOCKED AND IN LOWEST POSITION. WILL ENDORSE CONTINUITY OF CARE TO SANIPRACTIC PHYSICIAN RN.
--- NOTE | 2018-08-05 19:42 | NUR ---
HAND PLEATER NOTE PATIENT RECEIVED IN BED, OBTUNDED. PATIENT TOLERATING VENT SETTINGS NO S/S OF DISTRESS. PATIENT HR SR ON THE MONITOR. PATIENT SHOWS NO S/S OF DISCOMFORT OR PAIN. PATIENT ON GTUBE FEEDING 40 ML AN HOUR WITH MINIMAL RESIDUAL NOTED. PATIENT SCHEDULED TO HAVE GTUBE REPLACEMENT TOMORROW. PATIENT TO BE NPO AT MIDNIGHT. RN WILL CONTINUE TO MONITOR. SAFETY PRECAUTIONS IN PLACE.
[2018-08-05 20:00] VITALS: BP 84/43
[2018-08-06] VITALS (7 sets, daily range): BP systolic 81–146; BP diastolic 35–65
--- NOTE | 2018-08-06 00:26 | NUR ---
MANAGER COSTING NOTE ELIZABETH NOTIFID OF HYPOTENSION, ORDERED 250 NS BOLUS. EVALUATE AND IF NEEDED ANOTHER 250 BOLUS WITH A MAX OF 500 BOLUS. Addendum: 08/06/18 at 0028 by GEETA NORRIS RN Amended: Links added.
[2018-08-06] MEDS ORDERED: IV NS 0.9% 250 ML IV ONE ×2 (00:30→02:00)
--- NOTE | 2018-08-06 04:35 | NUR ---
PRENATAL NURSE NOTE AWARE THAT PATIENT BP REMAINS IN THE 80'S. NO NEW ORDERS GIVEN, PATIENT HX OF BP IS IN THE 80'S AND AND BORISN AWARE. Addendum: 08/06/18 at 0436 by GEETA NORRIS RN Amended: Links added.
[2018-08-06] MEDS: PIPERACILLIN /TAZOBACTAM 2.25 G in IV D5W 50 ML IV SCH (05:28)
[2018-08-06] MEDS: BLOOD SUGAR DIAGNOSTIC 1 EACH STRIP IN SCH ×4 (05:28→23:49)
[2018-08-06 06:53] LABS: BASOPHILS # (AUTO) 0.1 /CMM (0.0-0.2); BASOPHILS % (AUTO) 0.7 % (0.0-2.0); HEMATOCRIT 23 % (39-51); HEMOGLOBIN 7.3 g/dL (13.5-17.5); LYMPHOCYTES # (AUTO) 1.9 /CMM (0.8-4.8); LYMPHOCYTES % (AUTO) 15.7 % (20.0-44.0); MEAN CORPUSCULAR HGB CONC 32 g/dl (31.0-36.0); MEAN CORPUSCULAR VOLUME 99 fL (80-96); MONOCYTES # (AUTO) 1.1 /CMM (0.1-1.30); MONOCYTES % (AUTO) 8.8 % (2.0-12.0); NEUTROPHILS # (AUTO) 7.6 /CMM (1.8-8.9); NEUTROPHILS % (AUTO) 61.8 % (43.0-81.0); PLATELET COUNT (AUTO) 327 /CMM (150-450); RED BLOOD CELL COUNT(AUTO) 2.29 MIL/uL (4.5-6.0); WHITE BLOOD COUNT (AUTO) 12.3 K/uL (4.3-11.0)
--- NOTE | 2018-08-06 07:15 | NUR ---
SCREEN PRINTER HELPER OPENING NOTES PATIENT RECEIVED IN BED, OBTUNDED. PATIENT TOLERATING VENT SETTINGS NO S/S OF DISTRESS. PATIENT HR SR ON THE MONITOR. RUDI MIDLINE SL, PATENT AND INTACT, SITE CDI. R FOOT 22G SL, SITE CDI. PATIENT SHOWS NO S/S OF DISCOMFORT OR PAIN. PATIENT NPO FOR SCHEDULED GTUBE REPLACEMENT TODAY. RN WILL CONTINUE TO MONITOR. SAFETY PRECAUTIONS IN PLACE.
[2018-08-06] MEDS: PROSOURCE / PROSTAT (PYXIS) 30 ML UDC GT SCH (08:08)
[2018-08-06] MEDS: MIDODRINE HCL (5MG) 5 MG TABLET PO SCH ×3 (08:09→16:36)
[2018-08-06] MEDS: LACTOBACILLUS RHAMNOSUS GG 1 EACH CAP.SPRINK PO SCH ×2 (08:09→16:35)
--- NOTE | 2018-08-06 08:55 | NUR ---
DEFENCE FORCE MEMBER OTHER RANKS NOTES PAGED DR. GUADALUPE REGARDING PATIENT GTUBE REPLACEMENT. ORDERED TO PLACE GTUBE 18 OR 22 MONGOLIAN AT BEDSIDE. ORDERS ATTENDED. PATIENT NPO SINCE MIDNIGHT. WILL CONT TO MONITOR.
[2018-08-06] MEDS: HEPARIN SODIUM, PORCINE 5000 UNITS/1 ML VIAL SQ SCH (09:00)
--- NOTE | 2018-08-06 09:00 | NUR ---
RADIOLOGY CT TECHNOLOGIST NOTES HELD HEPARIN D/T PATIENT WILL HAVE GTUBE REPLACEMENT.
[2018-08-06] MEDS: PANTOPRAZOLE 40 MG VIAL IV SCH (09:13)
[2018-08-06] MEDS: HYDROGEL DRESSING 90 GM TUBE TP SCH (09:21)
[2018-08-06] MEDS: Z GUARD REMEDY 2 OZ OINT TP SCH (09:22)
[2018-08-06] MEDS: VANCOMYCIN 500 MG in IV D5W 100 ML IV PRN (12:19)
--- NOTE | 2018-08-06 16:00 | NUR ---
SANITATION TANK WASHER NOTES DR. GUADALUPE AT BEDSIDE. REINSERTED GTUBE AND ORDERED TO RESUME GTUBE FEEDING. WILL ATTEND TO ORDERS.
[2018-08-06] MEDS: NEPRO 1,000 ML BOTTLE GT PRN (16:24)
--- NOTE | 2018-08-06 19:15 | NUR ---
FLYER BUILDER CLOSING NOTES PATIENT IN BED, OBTUNDED, TOLERATING VENT SETTINGS, NO S/S OF DISTRESS, SATURATING 99%. PATIENT HR SR ON THE MONITOR WITH HR 90S. RUDI MIDLINE SL, PATENT AND INTACT, SITE CDI. R FOOT 22G SL, SITE CDI. PATIENT SHOWS NO S/S OF DISCOMFORT OR PAIN. GTUBE SITE WITH MINIMAL BLOOD NOTED S/P GTUBE REPLACEMENT. GTUBE FEEDING RUNNING AT 35ML/HR, PATIENT TOLERATING WELL, NO RESIDUAL NOTED. SAFETY PRECAUTIONS IN PLACE. ALL MD ORDERS ATTENDED. ALL NEEDS MET. ENDORSED TO SPANISH LINGUIST NURSE FOR SHARLENE.
--- NOTE | 2018-08-06 19:50 | NUR ---
COMMERCIAL REAL ESTATE ASSOCIATE NOTE RECEIVED PT IN STABLE CONDITION. PT IS OBTUNDED, ON VENT, TOLERATING WELL. S/P GTUBE PLACEMENT, SITE INTACT, WITH FEEDING RUNNING, NO RESIDUAL NOTED. NO SIGNS OF SOB/DISTRESS, NO INDICATION OF PAIN. ALL CURRENT NEEDS MET. SAFETY PRECAUTIONS IN PLACE. WILL CONT. TO MONITOR.
[2018-08-06] MEDS: ACETAMINOPHEN 325 MG TABLET MC PRN (20:30)
[2018-08-06] MEDS: HYDROCODONE/APAP 5/325MG 1 EACH TABLET GT PRN (22:21)
--- NOTE | 2018-08-06 23:44 | NUR ---
SCRAPER LOADER OPERATOR NOTE PT. NOTED WITH BS OF 15. RECHECKED TWO TIMES WITH RESULTS OF 84 AND 88.
[2018-08-07] VITALS (7 sets, daily range): BP systolic 100–136; BP diastolic 21–80
--- NOTE | 2018-08-07 05:56 | NUR ---
RT Pt remains on [facility] vent t/o the night. no resp distress noted. Pt trach is secure and patent. Addendum: 08/07/18 at 0557 by CAESAR SILVA RT Amended: Links added.
[2018-08-07] MEDS: BLOOD SUGAR DIAGNOSTIC 1 EACH STRIP IN SCH ×3 (06:35→18:00)
--- NOTE | 2018-08-07 06:49 | NUR ---
TIP BANDER NOTE PT IN STABLE CONDITION. PT IS OBTUNDED, ON VENT, TOLERATING WELL. S/P GTUBE PLACEMENT, SITE INTACT, WITH FEEDING RUNNING, NO RESIDUAL NOTED. NO SIGNS DISTRESS, NO INDICATION OF PAIN. ELLER PATENT WITH ADEQUATE URINE DRAINING. WOUND TX DONE. ALL CURRENT NEEDS MET. SAFETY PRECAUTIONS IN PLACE. WILL CONT. TO MONITOR AND ENDORSE TO NEXT SHIFT FOR SHARLENE.
[2018-08-07] MEDS: HYDROGEL DRESSING 90 GM TUBE TP SCH (10:29)
[2018-08-07] MEDS: PANTOPRAZOLE 40 MG VIAL IV SCH (10:29)
[2018-08-07] MEDS: MIDODRINE HCL (5MG) 5 MG TABLET PO SCH ×3 (10:29→19:07)
[2018-08-07] MEDS: LACTOBACILLUS RHAMNOSUS GG 1 EACH CAP.SPRINK PO SCH ×2 (10:29→19:07)
[2018-08-07] MEDS: Z GUARD REMEDY 2 OZ OINT TP SCH (10:30)
[2018-08-07] MEDS: PROSOURCE / PROSTAT (PYXIS) 30 ML UDC GT SCH (11:01)
[2018-08-07] MEDS ORDERED: VANCOMYCIN 1 GM in IV D5W 250 ML IV ONE (18:00)
--- NOTE | 2018-08-07 20:00 | NUR ---
SHELL GRADER NOTE RECEIVED PT IN STABLE CONDITION. PT IS OBTUNDED, ON VENT, TOLERATING WELL. GTUBE WITH FEEDING RUNNING ORDERED, NO RESIDUAL NOTED. NO SIGNS OF SOB/DISTRESS, NO INDICATION OF PAIN. ALL CURRENT NEEDS MET. SAFETY PRECAUTIONS IN PLACE. WILL CONT. TO MONITOR.
--- NOTE | 2018-08-07 20:10 | NUR ---
Handoff to CHRISTIANE Cesar. Patient needs two to three person max assist during bathing and wound care as he is unable to assist with multiple wounds that require packing. Trach to vent patient with diabetes. Blood sugar is stable at 88 mg/dL this last check. Patient given vancomycin. Plan: schedule for hemodialysis next. Javier Frey RN
--- NOTE | 2018-08-07 21:00 | NUR ---
RN NOTES HD IN PROCESS
--- NOTE | 2018-08-07 21:30 | NUR ---
RN NOTES PER HD RN, UNABLE TO DO HD, BECAUSE OF DIFFICULTY ACCESSING HD SHUNT. WILL TRY AGAIN TOMORROW.
[2018-08-08] VITALS: BP 100/74
[2018-08-08] MEDS: BLOOD SUGAR DIAGNOSTIC 1 EACH STRIP IN SCH ×5 (00:40→23:46)
[2018-08-08] MEDS: NEPRO 1,000 ML BOTTLE GT PRN ×2 (00:47→16:57)
[2018-08-08 04:00] VITALS: BP 122/74
--- NOTE | 2018-08-08 04:07 | NUR ---
RT PT remains on [facility] vent settings. Addendum: 08/08/18 at 0407 by CAESAR SILVA RT Amended: Links added.
--- NOTE | 2018-08-08 06:37 | NUR ---
RN CLOSING NOTE PT IN STABLE CONDITION. PT IS OBTUNDED, ON VENT, TOLERATING WELL. G TUBE FEEDING RUNNING ORDERED, NO RESIDUAL NOTED. NO SIGNS DISTRESS, NO INDICATION OF PAIN. ELLER PATENT DARING TO GRAVITY. ALL CURRENT NEEDS MET. SAFETY PRECAUTIONS IN PLACE. WILL CONT. TO MONITOR AND ENDORSE TO NEXT SHIFT FOR SHARLENE.
[2018-08-08 06:43] LABS: BASOPHILS # (AUTO) 0.1 /CMM (0.0-0.2); BASOPHILS % (AUTO) 1.2 % (0.0-2.0); EOSINOPHILS % (AUTO) 16.8 % (0.0-6.0); HEMATOCRIT 26 % (39-51); HEMOGLOBIN 8.6 g/dL (13.5-17.5); LYMPHOCYTES # (AUTO) 1.7 /CMM (0.8-4.8); LYMPHOCYTES % (AUTO) 17.4 % (20.0-44.0); MEAN CORPUSCULAR HGB CONC 33 g/dl (31.0-36.0); MEAN CORPUSCULAR VOLUME 98 fL (80-96); MONOCYTES % (AUTO) 9.7 % (2.0-12.0); NEUTROPHILS # (AUTO) 5.5 /CMM (1.8-8.9); NEUTROPHILS % (AUTO) 54.9 % (43.0-81.0); PLATELET COUNT (AUTO) 431 /CMM (150-450); RED BLOOD CELL COUNT(AUTO) 2.68 MIL/uL (4.5-6.0)
[2018-08-08 07:26] LABS: CALCIUM, SERUM 8.4 mg/dL (8.5-10.1); CREATININE 1.2 mg/dL (0.6-1.3); POTASSIUM 3.3 mmol/L (3.5-5.1)
--- NOTE | 2018-08-08 07:45 | NUR ---
HELPDESK ADMINISTRATOR OPENING NOTE PT. NONVERBAL, OPENS EYES TO NAME, TRACH/MECHANICAL VENT DEPENDANT, TOLERATING WELL. NO ACUTE DISTRESS OR SOB NOTED. TELE ATTACHED, SINUS RHYTHM 83. PULSE OX ATTACHED, ALARM AUDIBLE. NEPHRO @40mL/hr [employer] RUNNING. RIGHT UA MIDLINE TKO AND R FOOT 22G SL SITES CLEAN, DRY AND INTACT. ELLER DRAINING SMALL AMOUNT OF CLEAR YELLOW URINE. MATTRESS INFLATED. BED LOW, LOCKED, SIDE RAILS UPX2, BED ALARM ON, CALL LIGHT WITHIN REACH. WILL CONTINUE TO MONITOR
[2018-08-08 08:00] VITALS: BP 125/78
[2018-08-08] MEDS: HYDROGEL DRESSING 90 GM TUBE TP SCH ×2 (08:59→09:00)
[2018-08-08] MEDS: Z GUARD REMEDY 2 OZ OINT TP SCH ×2 (08:59→09:00)
[2018-08-08] MEDS: MIDODRINE HCL (5MG) 5 MG TABLET PO SCH ×4 (09:00→16:10)
[2018-08-08] MEDS: PANTOPRAZOLE 40 MG VIAL IV SCH (09:04)
[2018-08-08] MEDS: LACTOBACILLUS RHAMNOSUS GG 1 EACH CAP.SPRINK PO SCH ×2 (09:04→16:10)
[2018-08-08] MEDS ORDERED: POTASSIUM CHLORIDE 20 MEQ POWDER PACKET NG SCH (10:00)
[2018-08-08] MEDS: PROSOURCE / PROSTAT (PYXIS) 30 ML UDC GT SCH (10:23)
[2018-08-08] MEDS: ACETAMINOPHEN 325 MG TABLET MC PRN (11:22)
[2018-08-08 12:00] VITALS: BP_SYST 117; BP_SYST 141; BP_DIAS 45; BP_DIAS 73
--- NOTE | 2018-08-08 13:33 | NUR ---
HD COMPLETE. HR 76, RR 16, CORRECTIONAL GUARD 146/66. 1,500 CC OUT Addendum: 08/08/18 at 1924 by JUANA HIRSCH RN BP 146/66 *
--- NOTE | 2018-08-08 15:00 | NUR ---
ENGINEERING VICE PRESIDENT NOTE SEEN BY ,UPDATED ABOUT PATIENT CONDITION WITH LABS.GOT NEW ORDERS.ON HD.WILL CONTINUE TO MONITOR.
[2018-08-08 16:00] VITALS: BP 110/40
[2018-08-08] MEDS: VANCOMYCIN 500 MG in IV D5W 100 ML IV PRN (16:51)
--- NOTE | 2018-08-08 16:51 | NUR ---
BRIM STRETCHER NOTE RANDOM VANCO LEVEL RESULT CAME BACK ,VAHID FROM PHARMACY MADE AWARE.HOLD DOSE POST HD TODAY.
--- NOTE | 2018-08-08 17:59 | NUR ---
RT Patient received trach'd and on [facility] vent w ordered settings. Alarms are set and audible. Vent is plugged into red outlet w [facility] @ [facility]. Pt trach is secure and patent. Hand Slitter and Sx done w no adverse reactions. No respiratory distress noted t/o shift. Will continue to monitor. Addendum: 08/08/18 at 1800 by CARLOS ZULETA RT Amended: Links added.
--- NOTE | 2018-08-08 19:25 | NUR ---
POWER SUPERINTENDENT CLOSING PT IN STABLE CONDITION. PT IS OBTUNDED, ON VENT, TOLERATING WELL. NO SIGNIFICANT CHANGES THIS SHIFT. GTUBE SITE INTACT WITH FEEDING RUNNING, NO RESIDUAL NOTED. NO SIGNS OF ACUTE DISTRESS OR SHORTNESS OF BREATH. NO INDICATION OF PAIN. ELLER PATENT WITH URINE DRAINING. WOUND TX DONE. ALL ORDERED MEDS GIVEN. SAFETY PRECAUTIONS IN PLACE. ENDORSED TO PM NURSE
--- NOTE | 2018-08-08 19:25 | NUR ---
HAND FABRIC CUTTER NOTE RECEIVED PT RESTING WITH HOB ELEVATED, TRACH TO VENT ON SETTINGS ORDERED, ON TELE SR, NO S/SX OF CARDIAC OR RESPIRATORY DISTRESS, OBTUNDED, SKIN KEPT CLEAN AND DRY, ELLER CATHETER DRAINING YELLOW URINE, PEG TUBE WITH NEPHRO AT 40ML/HR, RUDI MIDLINE, R FOOT #22G, PATENT FLUSHING WELL. DRESSING INTACT, RIC AV SHUNT HD, DRESSING CLEAN AND DRY, SAFETY MAINTAINED AT ALL TIMES, BED IN LOW LOCKED POSITION, CALL LIGHT WITHIN REACH, WILL CONTINUE TO MONITOR FOR ANY CHANGES.
[2018-08-08 20:00] VITALS: BP 119/50
--- NOTE | 2018-08-08 20:41 | NUR ---
COW TRIMMER NOTE CALL FOR CRITICAL LAB VALUE, PROCALCITONIN 3.47, WILL CALL ENGINEERING DOCUMENT CONTROL CLERK DR JULIAN
--- NOTE | 2018-08-08 21:00 | NUR ---
PLUMBING DESIGNER NOTE CALL BACK FROM DR JULIAN, NO NEW ORDERS REGARDING CRITICAL LAB PROCALCITONIN 3.47, CONTINUE ANTIBIOTICS.
[2018-08-08] MEDS ORDERED: PIPERACILLIN /TAZOBACTAM 3.375 G VIAL IV ONE (23:53)
[2018-08-09] VITALS: BP 98/48
[2018-08-09] MEDS: ZOSYN IVPB 3.375 G in IV D5W 50ml IV SCH ×2 (00:04→05:31)
[2018-08-09] MEDS: HYDROCODONE/APAP 5/325MG 1 EACH TABLET GT PRN ×2 (02:48→14:57)
[2018-08-09 04:00] VITALS: BP 110/59
[2018-08-09] MEDS: BLOOD SUGAR DIAGNOSTIC 1 EACH STRIP IN SCH ×3 (05:23→17:35)
[2018-08-09] MEDS ORDERED: PIPERACILLIN /TAZOBACTAM 3.375 G VIAL IV ONE (05:30)
--- NOTE | 2018-08-09 05:49 | NUR ---
pt rec'd trached on [facility] vent on ac mode. no resp distress or sob noted. sx'd for thick mod amt of pale secretions. alarms are set and audible. vent plugged into red outlet. ambu bag bedside. will continue to monitor. Addendum: 08/09/18 at 0549 by ZANDRA NIXON RT Amended: Links added.
[2018-08-09 08:00] VITALS: BP 114/55
[2018-08-09 08:35] LABS: CALCIUM, SERUM 8.9 mg/dL (8.5-10.1); CREATININE 1.2 mg/dL (0.6-1.3); PHOSPHORUS 2.7 mg/dL (2.5-4.9); POTASSIUM 3.3 mmol/L (3.5-5.1)
[2018-08-09] MEDS: LACTOBACILLUS RHAMNOSUS GG 1 EACH CAP.SPRINK PO SCH ×2 (08:46→16:36)
[2018-08-09] MEDS: PANTOPRAZOLE 40 MG/PACK PACK NG SCH (08:46)
[2018-08-09] MEDS: MIDODRINE HCL (5MG) 5 MG TABLET PO SCH ×3 (08:47→16:44)
[2018-08-09] MEDS: HYDROGEL DRESSING 90 GM TUBE TP SCH (08:51)
[2018-08-09] MEDS: Z GUARD REMEDY 2 OZ OINT TP SCH (08:51)
[2018-08-09] MEDS: PROSOURCE / PROSTAT (PYXIS) 30 ML UDC GT SCH (08:57)
[2018-08-09 09:10] LABS: BASOPHILS # (AUTO) 0.1 /CMM (0.0-0.2); BASOPHILS % (AUTO) 0.9 % (0.0-2.0); EOSINOPHILS % (AUTO) 12.8 % (0.0-6.0); HEMATOCRIT 26 % (39-51); HEMOGLOBIN 8.3 g/dL (13.5-17.5); LYMPHOCYTES # (AUTO) 1.7 /CMM (0.8-4.8); LYMPHOCYTES % (AUTO) 16.6 % (20.0-44.0); MEAN CORPUSCULAR HGB CONC 32 g/dl (31.0-36.0); MEAN CORPUSCULAR VOLUME 99 fL (80-96); MONOCYTES # (AUTO) 0.9 /CMM (0.1-1.30); MONOCYTES % (AUTO) 9.5 % (2.0-12.0); NEUTROPHILS % (AUTO) 60.2 % (43.0-81.0); PLATELET COUNT (AUTO) 423 /CMM (150-450)
[2018-08-09 09:22] LABS: APPEARANCE,URINE TURBID (CLEAR); BILIRUBIN,URINE NEGATIVE (NEGATIVE); BLOOD, URINE 3+ Ery/uL (NEGATIVE); COLOR,URINE YELLOW (YELLOW); KETONES,URINE NEGATIVE (NEGATIVE); LEUKOCYTE ESTERASE ,URINE TRACE (NEGATIVE); NITRITE, URINE NEGATIVE (NEGATIVE); PROTEIN,URINE 2+ mg/dl (NEGATIVE); UGLUCOSE NEGATIVE (NEGATIVE); UROBILINOGEN,URINE 0.2 EU/dL (0.2)
[2018-08-09 09:47] LABS: BACTERIA,URINE Rare /HPF (None Seen); CALCIUM OXALATE CRYSTALS,UR Few /HPF (None Seen); SQUAMOUS EPITHELIAL CELL,UR Rare /HPF (None Seen)
[2018-08-09 12:00] VITALS: BP 116/64
[2018-08-09] MEDS ORDERED: PIPERACILLIN /TAZOBACTAM 3.375 G in IV D5W 50 ML IV SCH (12:00)
[2018-08-09] MEDS: PIPERACILLIN /TAZOBACTAM 2.25 G in IV D5W 50 ML IV SCH ×2 (12:07→20:55)
[2018-08-09] MEDS: VANCOMYCIN 500 MG in IV D5W 100 ML IV PRN (14:16)
[2018-08-09 16:00] VITALS: BP 109/37
[2018-08-09] MEDS: NEPRO 1,000 ML BOTTLE GT PRN (17:43)
--- NOTE | 2018-08-09 17:56 | NUR ---
RT NOTE PT REMAINS MECHANICALLY VENTILATED VIA CUFFED TRACHEOSTOMY TUBE. CUFF INFLATED. TRACH TUBE MIDLINE AND SECURE. VENTILATOR SETTINGS PRESCRIBED. ALARMS SET PER PROTOCOL AND AUDIBLE. VENT PLUGGED IN TO RED OUTLET. AMBU BAG AT BED SIDE. NO DISTRESS NOTED. Addendum: 08/09/18 at 1757 by MARIE SPENCE RT Amended: Links added.
--- NOTE | 2018-08-09 19:30 | NUR ---
RN INITIAL NOTES, RECEIVED PATIENT IN BED SLEEPING AT THIS THIS TIME, NON-VERBAL, NO S/S OF PAIN OR DISCOMFORT NOTED, NO SOB/ACUTE DISTRESS NOTED AT THIS TIME, ON MECHANICAL VENTILATOR, TOLERATED SETTINGS WELL, WITH O2 SAT LEVEL AT 100% AT THIS ON TELE MONITORING, SINUS RHYTHM, HR 70S AT THIS TIME, IV SITE SITE IN RIGHT FOOT S/L , PATENT AND INTACT, NO S/S OF INFILTRATION OR ANY ABNORMALITY AT SITE, L AV SHUNT INTACT, CLEAN & DRY, POSITIVE OF THRILL & BRUIT, GT IN PLACED, PATENT AND INTACT, GTF ON GOING @ 40CC/HR, NO GASTRIC RESIDUAL NOTED AT THIS TIME, ELLER CATHETER DRAINING YELLOW URINE, PATENCY INTACT, CLEAN AND DRY AND WELL REPOSITIONED AT THIS TIME, CALL LIGHT W/I REACH, WILL CONTINUE TO MONITOR CLOSELY.
[2018-08-09 20:00] VITALS: BP 109/38
[2018-08-10] VITALS: BP 99/46
[2018-08-10] MEDS: BLOOD SUGAR DIAGNOSTIC 1 EACH STRIP IN SCH ×5 (00:49→23:59)
--- NOTE | 2018-08-10 00:58 | NUR ---
RN NOTES, ENDORSED PATIENT IN STABLE CONDITION TO CHRISTIANE KHAN FOR CONTINUATION OF CARE.
--- NOTE | 2018-08-10 01:08 | NUR ---
SALES REPRESENTATIVE FACILITY SERVICES NOTE MIDSHIFT REPORT GIVEN BY CHRISTIANE NUR RECEIVED PT IN STABLE CONDITION, OBTUNDED. TELE MONITOR SR 80'S. ELLER PATENT WITH ADEQUATE URINE DRAINING. GTUBE PATENT WITH FEEDING INFUSING, NO RESIDUAL NOTED. PT IN VENT WITH SETTING TOLERATED. ALL CURRENT NEEDS ATTENDED TO. BED LOW, LOCKED, UPPER RAILS UP, AND CALL LIGHT WITHIN REACH. WILL CONT. TO MONITOR.
[2018-08-10 04:00] VITALS: BP 100/50
[2018-08-10] MEDS: PIPERACILLIN /TAZOBACTAM 2.25 G in IV D5W 50 ML IV SCH ×3 (04:09→20:44)
--- NOTE | 2018-08-10 06:36 | NUR ---
WATER TAXI CAPTAIN NOTE PT IN STABLE CONDITION, OBTUNDED. TELE MONITOR SR 80'S. ELLER PATENT WITH ADEQUATE URINE DRAINING. GTUBE PATENT WITH FEEDING INFUSING, NO RESIDUAL NOTED. PT ON VENT WITH SETTINGS TOLERATED. ALL CURRENT NEEDS ATTENDED TO. BED LOW, LOCKED, UPPER RAILS UP, AND CALL LIGHT WITHIN REACH. WILL CONT. TO MONITOR AND ENDORSE TO NEXT SHIFT FOR SHARLENE.
[2018-08-10 06:39] LABS: BASOPHILS # (AUTO) 0.1 /CMM (0.0-0.2); BASOPHILS % (AUTO) 1.2 % (0.0-2.0); EOSINOPHILS % (AUTO) 14.4 % (0.0-6.0); HEMATOCRIT 24 % (39-51); HEMOGLOBIN 7.7 g/dL (13.5-17.5); LYMPHOCYTES # (AUTO) 1.8 /CMM (0.8-4.8); LYMPHOCYTES % (AUTO) 15.8 % (20.0-44.0); MEAN CORPUSCULAR HGB CONC 32 g/dl (31.0-36.0); MEAN CORPUSCULAR VOLUME 98 fL (80-96); MONOCYTES # (AUTO) 1.2 /CMM (0.1-1.30); MONOCYTES % (AUTO) 10.1 % (2.0-12.0); NEUTROPHILS # (AUTO) 6.7 /CMM (1.8-8.9); NEUTROPHILS % (AUTO) 58.5 % (43.0-81.0); PLATELET COUNT (AUTO) 420 /CMM (150-450); RED BLOOD CELL COUNT(AUTO) 2.46 MIL/uL (4.5-6.0); WHITE BLOOD COUNT (AUTO) 11.5 K/uL (4.3-11.0)
[2018-08-10 06:48] LABS: CALCIUM, SERUM 8.6 mg/dL (8.5-10.1); CREATININE 1.4 mg/dL (0.6-1.3); POTASSIUM 3.2 mmol/L (3.5-5.1)
--- NOTE | 2018-08-10 07:30 | NUR ---
VENEER MEASURER OPENING NOTE RECEIVED REPORT FROM PM NURSE.PATIENT IN BED OBTUNDED. TELE MONITOR SR HR 87. ELLER PATENT WITH CLEAR YELLOW URINE DRAINING. GTUBE PATENT WITH FEEDING INFUSING, NO RESIDUAL NOTED. PT ON VENT WITH SETTINGS TOLERATED. ALL CURRENT NEEDS ATTENDED TO. BED LOW, LOCKED, UPPER RAILS UP,X3 AND CALL LIGHT WITHIN REACH. WILL CONTINUE TO MONITOR.
[2018-08-10 08:00] VITALS: BP 105/47
[2018-08-10] MEDS: Z GUARD REMEDY 2 OZ OINT TP SCH (08:34)
[2018-08-10] MEDS: HYDROGEL DRESSING 90 GM TUBE TP SCH (08:34)
[2018-08-10] MEDS: MIDODRINE HCL (5MG) 5 MG TABLET PO SCH ×3 (08:35→17:24)
[2018-08-10] MEDS: LACTOBACILLUS RHAMNOSUS GG 1 EACH CAP.SPRINK PO SCH ×2 (08:35→17:23)
[2018-08-10] MEDS: PANTOPRAZOLE 40 MG/PACK PACK NG SCH (08:35)
[2018-08-10] MEDS: PROSOURCE / PROSTAT (PYXIS) 30 ML UDC GT SCH (10:13)
[2018-08-10 12:00] VITALS: BP 115/62
--- NOTE | 2018-08-10 15:00 | NUR ---
COLLECTION SYSTEMS ADMINISTRATOR NOTE SEEN BY ,UPDATED ABOUT PATIENT CONDITION WITH LABS.ELEVATED WBC AND H/H TRENDING DOWN.WILL CONTINUE TO MONITOR.
[2018-08-10 16:00] VITALS: BP 108/58
--- NOTE | 2018-08-10 17:14 | NUR ---
RT Patient received trach'd and on [facility] vent w ordered settings. Alarms are set and audible. Vent is plugged into red outlet w [facility]. Pt trach is secure and patent. Hardware Designer done and pt sx'd prn w no adverse reactions. No respiratory distress noted t/o shift. Will continue to monitor. Addendum: 08/10/18 at 1824 by ACRLOS ZULETA RT Amended: Links added.
--- NOTE | 2018-08-10 19:27 | NUR ---
AWS SOLUTION ARCHITECT CLOSING NOTE RECEIVED REPORT FROM PM NURSE.PATIENT IN BED OBTUNDED. TELE MONITOR SR HR 92. ELLER PATENT WITH CLEAR YELLOW URINE DRAINING. GTUBE PATENT WITH FEEDING INFUSING, NO RESIDUAL NOTED. PT ON VENT WITH SETTINGS TOLERATED. ALL CURRENT NEEDS ATTENDED TO. BED LOW, LOCKED, UPPER RAILS UP,X3 AND CALL LIGHT WITHIN REACH. GOT NEW ORDER FOR LOW K FROM .ENDORSED TO PM NURSE FOR SHARLENE.
--- NOTE | 2018-08-10 19:30 | NUR ---
RN INITIAL NOTES, RECEIVED PATIENT IN BED WITH EYES SEMIOPEN AT THIS THIS TIME, AROUSES EASILY TO TACTILE STIMULI, NON-VERBAL, NO S/S OF PAIN OR DISCOMFORT NOTED, NO SOB/ACUTE DISTRESS NOTED AT THIS TIME, ON MECHANICAL VENTILATOR, TOLERATED SETTINGS WELL, WITH O2 SAT LEVEL AT 100% AT THIS ON TELE MONITORING, SINUS RHYTHM, HR 78S AT THIS TIME, IV SITE SITE IN RIGHT FOOT S/L , PATENT AND INTACT, NO S/S OF INFILTRATION OR ANY ABNORMALITY AT SITE, L AV SHUNT INTACT, CLEAN & DRY, POSITIVE OF THRILL & BRUIT, GT IN PLACED, PATENT AND INTACT, GTF ON GOING @ 40CC/HR, NO GASTRIC RESIDUAL NOTED AT THIS TIME, ELLER CATHETER DRAINING YELLOW URINE, PATENCY INTACT, CLEAN AND DRY AND WELL REPOSITIONED AT THIS TIME, CALL LIGHT W/I REACH, WILL CONTINUE TO MONITOR CLOSELY.
[2018-08-10 20:00] VITALS: BP 114/66
[2018-08-10] MEDS ORDERED: POTASSIUM CHLORIDE 20 MEQ POWDER PACKET GT ONE (20:00)
--- NOTE | 2018-08-10 22:10 | NUR ---
RT PT RECEIVED TRACHED ON [facility] VENT ON CHARTED SETTINGS. NO SIGNS OF DISTRESS NOTED AT THIS TIME. AIRWAY PATENT AND SECURED. STRATEGIC INSIGHTS LEAD DONE. PT SUCTIONED. ALARMS SET AND AUDIBLE. AMBUBAG AT BEDSIDE. VENT PLUGGED TO RED OUTLET. WILL CONT TO MONITOR. Addendum: 08/11/18 at 0023 by MAO HARMON RT Amended: Links added.
[2018-08-11] VITALS (7 sets, daily range): BP systolic 100–143; BP diastolic 40–69
[2018-08-11] MEDS: INSULIN REGULAR, HUMAN 100 UNIT/ML 3 ML VIAL SQ PRN
[2018-08-11] MEDS: NEPRO 1,000 ML BOTTLE GT PRN (05:39)
[2018-08-11] MEDS: PIPERACILLIN /TAZOBACTAM 2.25 G in IV D5W 50 ML IV SCH ×3 (05:46→20:15)
[2018-08-11 05:51] LABS: BASOPHILS # (AUTO) 0.2 /CMM (0.0-0.2); BASOPHILS % (AUTO) 1.2 % (0.0-2.0); EOSINOPHILS % (AUTO) 17.5 % (0.0-6.0); HEMATOCRIT 25 % (39-51); HEMOGLOBIN 8.1 g/dL (13.5-17.5); LYMPHOCYTES # (AUTO) 3.3 /CMM (0.8-4.8); LYMPHOCYTES % (AUTO) 25.5 % (20.0-44.0); MEAN CORPUSCULAR HGB CONC 33 g/dl (31.0-36.0); MEAN CORPUSCULAR VOLUME 99 fL (80-96); MONOCYTES # (AUTO) 1.2 /CMM (0.1-1.30); MONOCYTES % (AUTO) 9.2 % (2.0-12.0); NEUTROPHILS # (AUTO) 6.1 /CMM (1.8-8.9); NEUTROPHILS % (AUTO) 46.6 % (43.0-81.0); PLATELET COUNT (AUTO) 653 /CMM (150-450); RED BLOOD CELL COUNT(AUTO) 2.51 MIL/uL (4.5-6.0); WHITE BLOOD COUNT (AUTO) 13.1 K/uL (4.3-11.0)
[2018-08-11 06:01] LABS: CALCIUM, SERUM 9.1 mg/dL (8.5-10.1); CREATININE 1.5 mg/dL (0.6-1.3)
[2018-08-11] MEDS: BLOOD SUGAR DIAGNOSTIC 1 EACH STRIP IN SCH ×3 (06:15→17:34)
--- NOTE | 2018-08-11 07:00 | NUR ---
RN NOTES, PATIENT IN BED SLEEPING AT THIS THIS TIME, NON-VERBAL, NO S/S OF PAIN OR DISCOMFORT NOTED, NO SOB/ACUTE DISTRESS NOTED AT THIS TIME, ON MECHANICAL VENTILATOR, TOLERATED SETTINGS WELL, NO SIGNIFICANT CHANGE IN CONDITION AT THIS TIME, CLEAN AND DRY, CALL LIGHT W/I REACH, ENDORSED CONTINUITY OF CARE TO CHRISTIANE JACOBSON.
--- NOTE | 2018-08-11 07:37 | NUR ---
RN AM SHIFT NOTE PATIENT IN BED NON VERBAL. SAFETY PRECAUTIONS IN PLACE, CALL LIGHT WITHIN REACH. IV SITE PATENT AND INTACT, NO INFILTRATION. MIDLINE INTACT PATENT AND NO INFILTRATION. NOTED TO NOT TAKE BP ON LEFT UPPER EXTREMEITY. AWAITING DEBRIMENT TODAY, ENDORSED TWO DOCTORS NEED TO SIGN OFF ON CONCENT FOR TREATMENT.CONTINUE TO MONITOR
[2018-08-11] MEDS: MIDODRINE HCL (5MG) 5 MG TABLET PO SCH ×3 (08:03→17:34)
[2018-08-11] MEDS: PANTOPRAZOLE 40 MG/PACK PACK NG SCH (08:03)
[2018-08-11] MEDS: LACTOBACILLUS RHAMNOSUS GG 1 EACH CAP.SPRINK PO SCH ×2 (08:03→17:34)
[2018-08-11] MEDS: Z GUARD REMEDY 2 OZ OINT TP SCH (08:04)
[2018-08-11] MEDS: HYDROGEL DRESSING 90 GM TUBE TP SCH (08:04)
[2018-08-11] MEDS: PROSOURCE / PROSTAT (PYXIS) 30 ML UDC GT SCH (08:04)
--- NOTE | 2018-08-11 09:54 | NUR ---
RT PT RECEIVED TRACHED ON [facility] VENT ON CHARTED SETTINGS. NO SIGNS OF DISTRESS NOTED AT THIS TIME. AIRWAY PATENT AND SECURED. HIGH SCHOOL AGRICULTURE TEACHER DONE. PT SUCTIONED. ALARMS SET AND AUDIBLE. AMBUBAG AT BEDSIDE. VENT PLUGGED TO RED OUTLET. WILL CONT TO MONITOR.
[2018-08-11] MEDS: HEPARIN SODIUM, PORCINE 5000 UNITS/1 ML VIAL SQ SCH ×2 (10:30→20:18)
[2018-08-11] MEDS ORDERED: VANCOMYCIN 1 GM in IV D5W 250 ML IV ONE (17:00)
--- NOTE | 2018-08-11 18:45 | NUR ---
RN CLOSING NOTE PATIENT RESPONSIVE TO STIMUI ONLY, NON VERBAL. DIALYSIS CAME TODAY, UNABLE TO PULL OF ANY FLUID FROM THE PATIENT, HAD TO STOP TREATEMENT DUE TO DESATURATION AND UNSTABLE VITALS PER DIALYSIS NURSE. RN ASSESS PATIENT, VITALS SIMILAR TO BASELINE NO NEED FOR INTERVENTION, TOLERATED MEDICATION WELL. WOUND DEBRIMENT DONE TODAY BY MD AT BEDSIDE. TOLERATED WELL, NO BLEEDING OR REDNESS AT SITE POST TX. WOUND CHANGES DONE FOR OTHER 3 LOCATIONS, DAKENS DELEIVERED AND DRESSINGS PACKED PER MD ORDER. NIGHT WOUND MD SAW PATIENT, RN INFORMED OF INCREASED PLATLETS, NO NEW ORDERS AT THIS TIME. SAFETY PRECAUTIONS IN PLACE, BED KEPT IN LOW POSITION CONTINUE TO MONITOR PATIENT.
--- NOTE | 2018-08-11 19:30 | NUR ---
RN INITIAL NOTES, RECEIVED PATIENT IN BED ASLEEP AT THIS THIS TIME, AROUSES EASILY TO TACTILE STIMULI, NON-VERBAL, NO S/S OF PAIN OR DISCOMFORT NOTED, NO SOB/ACUTE DISTRESS NOTED AT THIS TIME, ON MECHANICAL VENTILATOR, TOLERATED SETTINGS WELL, WITH O2 SAT LEVEL AT 99-100% AT THIS TIME, ON TELE MONITORING, SINUS RHYTHM, HR 90S AT THIS TIME, RUDI MIDLINE PATENT AND INTACT, IV SITE SITE IN RIGHT FOOT S/L , PATENT AND INTACT, NO S/S OF INFILTRATION OR ANY ABNORMALITY AT SITES, L AV SHUNT INTACT, CLEAN & DRY, POSITIVE OF THRILL & BRUIT, GT IN PLACED, PATENT AND INTACT, GTF ON GOING @ 40CC/HR, NO GASTRIC RESIDUAL NOTED AT THIS TIME, ELLER CATHETER DRAINING YELLOW URINE, PATENCY INTACT, CLEAN AND DRY AND WELL REPOSITIONED AT THIS TIME, CALL LIGHT W/I REACH, WILL CONTINUE TO MONITOR CLOSELY.
[2018-08-11] MEDS: ACETAMINOPHEN 325 MG TABLET MC PRN (20:14)
[2018-08-12] VITALS: BP 92/44
[2018-08-12] MEDS: BLOOD SUGAR DIAGNOSTIC 1 EACH STRIP IN SCH ×3 (00:39→12:09)
[2018-08-12] MEDS: INSULIN REGULAR, HUMAN 100 UNIT/ML 3 ML VIAL SQ PRN ×2 (00:40→05:51)
[2018-08-12 04:00] VITALS: BP 108/47
[2018-08-12] MEDS: PIPERACILLIN /TAZOBACTAM 2.25 G in IV D5W 50 ML IV SCH ×2 (04:50→12:23)
[2018-08-12 06:40] LABS: CALCIUM, SERUM 8.8 mg/dL (8.5-10.1); CREATININE 1.4 mg/dL (0.6-1.3); POTASSIUM 4.1 mmol/L (3.5-5.1)
--- NOTE | 2018-08-12 06:58 | NUR ---
RN NOTES, PATIENT IN BED SLEEPING AT THIS THIS TIME, NON-VERBAL, NO S/S OF PAIN OR DISCOMFORT NOTED, NO SOB/ACUTE DISTRESS NOTED AT THIS TIME, ON MECHANICAL VENTILATOR, TOLERATED SETTINGS WELL, NO SIGNIFICANT CHANGE IN CONDITION THROUGHOUT THE NIGHT, CLEAN AND DRY, WOUND CARE DONE ORDERED, AND MEDICATIONS ADMINISTERED ORDERED, CALL LIGHT W/I REACH, WILL ENDORSE CONTINUITY OF CARE TO ONCOMING NURSE.
--- NOTE | 2018-08-12 07:10 | NUR ---
FAMILY DEVELOPMENT SPECIALIST OPENING NOTE RECEIVED REPORT FROM PM NURSE.PATIENT IN BED OBTUNDED. TELE MONITOR SR HR 82. ELLER PATENT WITH CLEAR YELLOW URINE DRAINING. GTUBE PATENT WITH FEEDING INFUSING, NO RESIDUAL NOTED. PT ON VENT WITH SETTINGS TOLERATED. ALL CURRENT NEEDS ATTENDED TO. BED LOW, LOCKED, UPPER RAILS UP,X3 AND CALL LIGHT WITHIN REACH. WILL CONTINUE TO MONITOR.
[2018-08-12 08:00] VITALS: BP 125/65
[2018-08-12] MEDS: PANTOPRAZOLE 40 MG/PACK PACK NG SCH (08:07)
[2018-08-12] MEDS: LACTOBACILLUS RHAMNOSUS GG 1 EACH CAP.SPRINK PO SCH (08:07)
[2018-08-12] MEDS: MIDODRINE HCL (5MG) 5 MG TABLET PO SCH ×2 (08:07→12:23)
[2018-08-12] MEDS: PROSOURCE / PROSTAT (PYXIS) 30 ML UDC GT SCH (08:08)
[2018-08-12] MEDS: HYDROGEL DRESSING 90 GM TUBE TP SCH (08:10)
[2018-08-12] MEDS: Z GUARD REMEDY 2 OZ OINT TP SCH (08:10)
[2018-08-12] MEDS: HEPARIN SODIUM, PORCINE 5000 UNITS/1 ML VIAL SQ SCH (08:17)
[2018-08-12] MEDS ORDERED: DAKINS HALF STRENGTH (0.25%) 480 ML BOTTLE TOP SCH (09:00)
[2018-08-12 12:00] VITALS: BP 137/60
[2018-08-12 12:23] VITALS: BP 137/60
--- NOTE | 2018-08-12 13:00 | NUR ---
LOSS CONTROL ENGINEER NOTE MIDODRINE NOT ADMINISTERED BECAUSE OF STABLE BP.DISCARDED MORNING DOSE.
--- NOTE | 2018-08-12 13:03 | NUR ---
RAIL TRANSIT OPERATOR NOTE SEEN BY ID SAKINA HERRING,TO CONTINUE IV ATB ZOSYN FOR TOTAL OF 6 WEEKS.CLARIFIED WITH 'S ORDER FOR IV ATB.OK TO CONTINUE IV ATB FOR 6 WEEKS TOTAL.CLARIFIED WITH ABOUT ZOSYN DOSING ,OK TO CONTINUE WITH ZOSYN 3.375MG.REPORT GIVEN TO NOEMY AT [facility] WITH INFORMATION ABOUT ANTIBIOTIC CONTINUATION OF TOTAL OF 6 WEEKS.WILL CONTINUE TO MONITOR.
[2018-08-12] MEDS: ACETAMINOPHEN 325 MG TABLET MC PRN (14:08)
--- NOTE | 2018-08-12 15:12 | NUR ---
SUTURE POLISHERAPPEALS BOARD REFEREE NOTE PATIENT D/C TO [facility] IN STABLE CONDITION WITH RT.NO SOB NO DISTRESS NOTED.VITAL SIGNS STABLE.ALL BELONGINGS TAKEN WITH SUCTION MACHINE.DISCHARGE FOLDER GIVEN WITH REPORT.KEPT IV LINE TO CONTINUE TO IV ATB.PATIENT CLEAN.WOUND DRESSING DONE.
== END 2018-08-12 15:07 | DRG 720 ==
LOC: ER 15:42 → TELE-TD 20:57 → TELE1 08-02 10:20
PROVIDERS: ADMIT Nurse Practitioner Acute Care; ATTEND Nurse Practitioner Acute Care
PROC: 5A1955Z Respiratory Ventilation, Greater than 96 Consecutive Hours (ICD-10-PCS; principal; 2018-07-30)
PROC: 5A1D70Z Performance of Urinary Filtration, Intermittent, Less than 6 Hours Per Day (ICD-10-PCS; 2018-07-31)
PROC: 5A1D70Z Performance of Urinary Filtration, Intermittent, Less than 6 Hours Per Day (ICD-10-PCS; 2018-08-02)
PROC: 0JB70ZZ Excision of Back Subcutaneous Tissue and Fascia, Open Approach (ICD-10-PCS; 2018-08-04)
PROC: 5A1D70Z Performance of Urinary Filtration, Intermittent, Less than 6 Hours Per Day (ICD-10-PCS; 2018-08-05)
PROC: 05H533Z Insertion of Infusion Device into Right Subclavian Vein, Percutaneous Approach (ICD-10-PCS; 2018-08-05)
PROC: B546ZZA Ultrasonography of Right Subclavian Vein, Guidance (ICD-10-PCS; 2018-08-05)
PROC: 5A1D70Z Performance of Urinary Filtration, Intermittent, Less than 6 Hours Per Day (ICD-10-PCS; 2018-08-07)
PROC: 5A1D70Z Performance of Urinary Filtration, Intermittent, Less than 6 Hours Per Day (ICD-10-PCS; 2018-08-08)
PROC: 5A1D70Z Performance of Urinary Filtration, Intermittent, Less than 6 Hours Per Day (ICD-10-PCS; 2018-08-11)
PROC: 0JBN0ZZ Excision of Right Lower Leg Subcutaneous Tissue and Fascia, Open Approach (ICD-10-PCS; 2018-08-11)
DX: A40.9 Streptococcal sepsis, unspecified (principal); G93.41 Metabolic encephalopathy; E43 Unspecified severe protein-calorie malnutrition; Z99.11 Dependence on respirator [ventilator] status; L89.153 Pressure ulcer of sacral region, stage 3; J96.11 Chronic respiratory failure with hypoxia; R64 Cachexia; L89.894 Pressure ulcer of other site, stage 4; R53.2 Functional quadriplegia; R13.10 Dysphagia, unspecified; D68.59 Other primary thrombophilia; E11.22 Type 2 diabetes mellitus with diabetic chronic kidney disease; N18.6 End stage renal disease; I12.0 Hypertensive chronic kidney disease with stage 5 chronic kidney disease or end stage renal disease; N39.0 Urinary tract infection, site not specified; K21.9 Gastro-esophageal reflux disease without esophagitis; Z86.73 Personal history of transient ischemic attack (TIA), and cerebral infarction without residual deficits; Z99.2 Dependence on renal dialysis; M24.561 Contracture, right knee; M24.562 Contracture, left knee; E86.9 Volume depletion, unspecified; Z93.1 Gastrostomy status; E87.6 Hypokalemia; Z93.0 Tracheostomy status; Z79.899 Other long term (current) drug therapy; Z79.01 Long term (current) use of anticoagulants; B96.89 Other specified bacterial agents as the cause of diseases classified elsewhere; L89.520 Pressure ulcer of left ankle, unstageable; L89.510 Pressure ulcer of right ankle, unstageable; L89.890 Pressure ulcer of other site, unstageable; H66.92 Otitis media, unspecified, left ear; Z87.440 Personal history of urinary (tract) infections; E11.69 Type 2 diabetes mellitus with other specified complication; M86.8X8 Other osteomyelitis, other site; M65.9 Synovitis and tenosynovitis, unspecified; D64.9 Anemia, unspecified; E87.8 Other disorders of electrolyte and fluid balance, not elsewhere classified
CPT/HCPCS: 31720; 36415; 36600; 71045-TC; 72192-TC; 80048-TC; 80076-TC; 80202-TC; 81000-TC; 82040-TC; 82803-TC; 82962-TC; 83605-TC; 83735-TC; 84100-TC; 84443-TC; 84484-TC; 85025-TC; 85652-TC; 85730-TC; 86706; 87040-TC; 87070-TC; 87081-TC; 87086-TC; 87340; 90935-TC; 94002-TC; 94003-TC; 94760-TC; 94762-TC; 94799-TC; 95819-TC; 99082-TC; A4217; A4623; A6248; A6253; A6402; A6403; A7526; C9113; G0378; J1644; J1815; J2543; J3370; J3475; J3490; J7030; J7050; J7060

== ENCOUNTER 2018-09-10 12:46 | Inpatient (IN) | payer OTHER ==
[~2018-09-10] VITALS: Ht 167.6 cm; Wt 57.6 kg
[2018-09-10] VITALS (40 sets, daily range): BP systolic 72–134; BP diastolic 26–70
[~2018-09-10 12:46] MED LIST: ACET-868 GT; AMIO200T4 GT; BACL10TA GT; BISA10SU11 RC; DOCU50LI GT; FERR300L GT; FOLI0.8T2 GT; HEPA50008 SQ; HYDR-4384 GT; MAGN400O6 GT; METO5SOL GT; MIDO10TA PO; NA P133E RC; OMEP40CA37 GT; ONDA4TAB5 GT; PIPE3.379 IV; ZINC220C8 GT
[2018-09-10] MEDS ORDERED: IV NS 0.9% 1,000 ML BAG IV ONE (13:00)
--- NOTE | 2018-09-10 13:05 | NUR ---
PT.PLACED INTO VENT SUPPORT VIA TRACH WITH PORTEX#8 CUFFED, PARAMETERS BELOW PER RT TRANSPORTER: AC 16, VT 450, 40%, PEEP +5 BREATH SOUNDS CLEAR BILATERAL. VENT IS PLUGGED INTO RED OUTLET WITH ALARMS ON AND FUNCTIONING. ARI @ BEDSIDE. Addendum: 09/10/18 at 1309 by CINTIA BAILON RT Amended: Links added.
[2018-09-10 13:28] LABS: BASOPHILS # (AUTO) 0.2 /CMM (0.0-0.2); BASOPHILS % (AUTO) 0.8 % (0.0-2.0); EOSINOPHILS % (AUTO) 0.9 % (0.0-6.0); HEMATOCRIT 39 % (39-51); HEMOGLOBIN 12.4 g/dL (13.5-17.5); LYMPHOCYTES # (AUTO) 2.3 /CMM (0.8-4.8); LYMPHOCYTES % (AUTO) 9.1 % (20.0-44.0); MEAN CORPUSCULAR HGB CONC 32 g/dl (31.0-36.0); MEAN CORPUSCULAR VOLUME 103 fL (80-96); MONOCYTES % (AUTO) 7.9 % (2.0-12.0); NEUTROPHILS # (AUTO) 20.4 /CMM (1.8-8.9); NEUTROPHILS % (AUTO) 81.3 % (43.0-81.0); PLATELET COUNT (AUTO) 657 /CMM (150-450); WHITE BLOOD COUNT (AUTO) 25.1 K/uL (4.3-11.0)
[2018-09-10 13:40] LABS: APPEARANCE,URINE Cloudy (CLEAR); BILIRUBIN,URINE Negative (NEGATIVE); BLOOD, URINE Large Ery/uL (NEGATIVE); COLOR,URINE Yellow (YELLOW); KETONES,URINE Negative (NEGATIVE); LEUKOCYTE ESTERASE ,URINE Large (NEGATIVE); NITRITE, URINE Negative (NEGATIVE); PH,URINE 5.5 (5.0-8.0); PROTEIN,URINE 30 mg/dl (NEGATIVE); UGLUCOSE Negative (NEGATIVE); UROBILINOGEN,URINE 0.2 EU/dL (0.2)
[2018-09-10 13:45] LABS: ALBUMIN 2.5 g/dL (3.4-5.0); BILIRUBIN,TOTAL 0.3 mg/dL (0.2-1.0); CREATININE 4.9 mg/dL (0.6-1.3)
[2018-09-10 13:46] LABS: BACTERIA,URINE 1+ /HPF (None Seen); SQUAMOUS EPITHELIAL CELL,UR Rare /HPF (None Seen); URINE AMORPHOUS URATE Few /HPF (None Seen); YEAST,URINE Few /HPF (None Seen)
[2018-09-10] MEDS ORDERED: MIDO10TA GT (13:58)
[2018-09-10] MEDS ORDERED: NA P133E RC (13:58)
[2018-09-10 14:26] LABS: BAND % (MANUAL) 2 % (0.0-5.0); LYMPHOCYTES % (MANUAL) 13 % (16-48); MONOCYTES % (MANUAL) 6 % (0-11.0); NEUTROPHILS % (MANUAL) 77 (42-76)
[2018-09-10] MEDS ORDERED: VANCOMYCIN 1 GM in IV D5W 250 ML IV ONE (14:30)
[2018-09-10] MEDS ORDERED: CEFEPIME 1 GM in IV D5W 50 ML IV ONE (14:30)
[2018-09-10] MEDS ORDERED: IV NS 0.9% 500 ML BAG IV ONE (16:00)
--- NOTE | 2018-09-10 16:30 | NUR ---
REPORT GIVEN TO STACIE GRANDE.
--- NOTE | 2018-09-10 17:02 | NUR ---
0 PEEP DUE TO LOW BP. Addendum: 09/10/18 at 1702 by CINTIA BAILON RT Amended: Links added.
--- NOTE | 2018-09-10 17:15 | NUR ---
RN NOTES RECEIVED PT FROM ER IN ROOM 257, NONVERBAL , UPPER AND LOWER EXTREMITIES ARE CONTRACTED, O2 SAT IS 98%,VENT /TRACH DEPENDENT, ON TELE SR HR IN 70'S , ELLER DRINING TO GRAVITY, GT CLAMPED AT THIS TIME, SEVERAL WOUND NOTED , PICTURE TAKEN AND PLACED IN THE CHART, WOUND CONSULT ORDERED, R FA IV SITE G 20 CLEAN, DRY AND INTACT, SR UP x3, CALL LIGHT WITHIN EASY REACH, BED LOCKED AND IN LOWEST POSITION , CONTINUE TO MONITOR .
--- NOTE | 2018-09-10 17:17 | NUR ---
pt. transferred from er #1 to icu 256. pt. use same mech vent. mech vent plugged into emergency outlet. walter @ bedside. Addendum: 09/10/18 at 1718 by CINTIA BAILON RT Amended: Links added.
--- NOTE | 2018-09-10 18:52 | NUR ---
RN NOTES BP=78/74 ON MONITOR , 81/50 MANUALLY , DR WILL NOTIFED, NO NEW ORDER GIVEN , CONTINUE TO MONITOR .
[2018-09-10] MEDS: MIDODRINE HCL (5MG) 5 MG TABLET GT SCH (18:59)
[2018-09-10] MEDS ORDERED: PERMETHRIN 5% CRM 60 GM TUBE TP ONE (19:00)
--- NOTE | 2018-09-10 19:10 | NUR ---
RN NITOS BP 101/ 60 AT THIS TIME , REPORT GIVEN TO NIGHT NURSE FOR CONTINUITY OF CARE .
[2018-09-10] MEDS ORDERED: FEE PK DOSING 1 MIN EA MC ONE (19:16)
[2018-09-10] MEDS ORDERED: IVERMECTIN 3 MG TABLET PO ONE (20:00)
[2018-09-10] MEDS ORDERED: MAG HYDROX/AL HYDROX/SIMETH 30 ML UDC PO PRN (20:30)
[2018-09-10] MEDS ORDERED: Z GUARD REMEDY 2 OZ OINT TP PRN (20:30)
[2018-09-10] MEDS ORDERED: MEROPENEM 500 MG in IV NS 0.9% 50 ML IV SCH (20:30)
[2018-09-10] MEDS ORDERED: MAGNESIUM HYDROXIDE 30 ML UDC PO PRN (20:30)
[2018-09-10] MEDS: NOREPINEPHRINE 16 MG in IV D5W 500 ML IV PRN (20:39)
[2018-09-10] MEDS: AMIODARONE HCL 200 MG TABLET GT SCH (21:00)
[2018-09-10] MEDS ORDERED: MEROPENEM 500 MG VIAL IV ONE (21:53)
[2018-09-10] MEDS: IV NS 0.9% 1,000 ML IV PRN (21:55)
[2018-09-10] MEDS: MEROPENEM 500 MG in IV NS 0.9% 50 ML IV SCH (21:55)
[2018-09-10] MEDS: BACLOFEN (10 MG) 10 MG TABLET GT SCH (22:35)
[2018-09-10] MEDS: HEPARIN SODIUM, PORCINE 5000 UNITS/1 ML VIAL SQ SCH (22:36)
[2018-09-11] VITALS (87 sets, daily range): BP systolic 49–147; BP diastolic 20–87
[2018-09-11] MEDS: MIDODRINE HCL (5MG) 5 MG TABLET GT SCH ×3 (01:30→16:36)
[2018-09-11 04:32] LABS: BASOPHILS # (AUTO) 0.2 /CMM (0.0-0.2); BASOPHILS % (AUTO) 0.8 % (0.0-2.0); EOSINOPHILS % (AUTO) 2.4 % (0.0-6.0); HEMATOCRIT 31 % (39-51); HEMOGLOBIN 9.7 g/dL (13.5-17.5); LYMPHOCYTES # (AUTO) 2.6 /CMM (0.8-4.8); LYMPHOCYTES % (AUTO) 13.6 % (20.0-44.0); MEAN CORPUSCULAR HGB CONC 31 g/dl (31.0-36.0); MEAN CORPUSCULAR VOLUME 104 fL (80-96); MONOCYTES # (AUTO) 1.5 /CMM (0.1-1.30); NEUTROPHILS # (AUTO) 14.4 /CMM (1.8-8.9); NEUTROPHILS % (AUTO) 75.2 % (43.0-81.0); PLATELET COUNT (AUTO) 620 /CMM (150-450); RED BLOOD CELL COUNT(AUTO) 3.02 MIL/uL (4.5-6.0); WHITE BLOOD COUNT (AUTO) 19.1 K/uL (4.3-11.0)
[2018-09-11 04:56] LABS: BILIRUBIN,TOTAL 0.2 mg/dL (0.2-1.0); CALCIUM, SERUM 10.2 mg/dL (8.5-10.1); CREATININE 4.5 mg/dL (0.6-1.3); PHOSPHORUS 5.6 mg/dL (2.5-4.9); POTASSIUM 3.7 mmol/L (3.5-5.1); TOTAL PROTEIN, SERUM 8.2 g/dL (6.4-8.2)
[2018-09-11] MEDS: BACLOFEN (10 MG) 10 MG TABLET GT SCH ×3 (05:04→20:54)
--- NOTE | 2018-09-11 07:00 | NUR ---
RN NOTES RECEIVED PT ON BED, OBTUNDED, VENT/TRACH DEPENDENT, TOLERATING CURRENT VENT SETTING WELL, ON TELE SB-SR, ELLER DRINING TO GRAVITY, LEVO AT 4MCG/MIN RUNNING VIA R UPPER ARM MIDLINE ,SITE CLEAN, DRY AND INTACT, NS AT 75CC/HR INFUSING , SR UP x3, CALL LIGHT WITHIN EASY REACH, BED LOCKED AND IN LOWEST POSITION, CONTINUE TO MONITOR.
[2018-09-11] MEDS: FERROUS SULFATE UDC 300 MG/5 ML UDC GT SCH ×2 (08:16→16:36)
[2018-09-11] MEDS: DOCUSATE SODIUM LIQ 100 MG/10 ML UDC GT SCH (08:16)
[2018-09-11] MEDS: HEPARIN SODIUM, PORCINE 5000 UNITS/1 ML VIAL SQ SCH ×2 (08:17→20:59)
[2018-09-11] MEDS: MEROPENEM 500 MG in IV NS 0.9% 50 ML IV SCH ×2 (08:17→20:57)
[2018-09-11] MEDS: AMIODARONE HCL 200 MG TABLET GT SCH ×2 (08:19→20:55)
[2018-09-11] MEDS ORDERED: EPOETIN ALFA (10,000 UNIT) 10,000 UNIT/ML VIAL IV ONE (08:30)
[2018-09-11 08:35] LABS: ABG BASE EXCESS -7.8 mmol/L; ABG OXYGEN SATURATION 98.8 % (92.0-98.5); ABG PCO2 38.3 mmHg (35.0-45.0); ABG PH 7.293 (7.350-7.450); ABG PO2 164.8 mmHg (75.0-100.0); AaDO2 76.4 mmHg; COHb 0.6 % (0.5-1.5); MetHb 0.4 % (0.0-1.5); O2Hb 97.8 % (94.0-97.0); SITE, ABG Right Radial; VENT MODE, BG A/C; VT, ABG 450 mL
--- NOTE | 2018-09-11 08:41 | NUR ---
WOUND CARE CONSULT: PT PRESENTS WITH MULTIPLE STAGE 4 ULCERS, PRESENT ON ADMISSION WITH FOUL ODOR. NECROTIC TISSUE NOTED TO RT BUTTOCK WOUND. LOWER EXTREMITY WOUNDS ALSO NOTED TO BE PRESENT ON ADMISSION. RECOMMEND SURGICAL AND DPM CONSULTS. DR REBECCA CAVANAUGH AND DR FARR NOTIFIED OF CONSULT REQUESTS. DEFER TO DPM FOR LOWER EXTREMITIES. RECOMMENDATIONS MADE FOR WOUND CARE AND SKIN PROTECTION. DISCUSSED WITH NURSING STAFF. PT NOTED TO HAVE CONTRACTURES OF UPPER AND LOWER EXTREMITIES, MAKING OFFLOADING DIFFICULT. PT ON FIRST STEP [facility] AIRLOSS MATTRESS. DIETARY CONSULT IN PLACE. WILL SEE PRN. GREENE IN AGREEMENT WITH PLAN OF CARE. CURRENT KRISTAL SCORE IS 7. Addendum: 09/11/18 at 0844 by DOT VALLEJO WNDNU Amended: Links added.
[2018-09-11] MEDS: DAKINS HALF STRENGTH (0.25%) 480 ML BOTTLE TOP SCH (09:19)
--- NOTE | 2018-09-11 09:20 | NUR ---
RN NOTES PT RECEIVING HD AT THIS TIME .
[2018-09-11] MEDS: IV NS 0.9% 1,000 ML IV PRN (11:37)
[2018-09-11] MEDS: NEPRO 1,000 ML BOTTLE GT PRN (11:41)
[2018-09-11] MEDS: SEVELAMER CARBONATE 800 MG TABLET PO SCH ×2 (13:01→17:02)
--- NOTE | 2018-09-11 14:02 | NUR ---
RT NOTE PT REMAINS MECHANICALLY VENTILATED VIA PORTEX 8 CUFFED TRACHEOSTOMY TUBE. CUFF INFLATED. TRACH TUBE MIDLINE AND SECURE. VENTILATOR SETTINGS PRESCRIBED. ALARMS SET PER PROTOCOL AND AUDIBLE. VENT PLUGGED IN TO RED OUTLET. AMBU BAG AT BED SIDE. NO DISTRESS NOTED AT MOMENT. Addendum: 09/11/18 at 1403 by MARIE SPENCE RT Amended: Links added.
--- NOTE | 2018-09-11 16:15 | NUR ---
RN NOTES VSS STABLE, LEVO OFF AT THIS TIME, CONTINUE TO MONITOR .
[2018-09-11] MEDS ORDERED: VANCOMYCIN 500 MG in IV D5W 100 ML IV PRN (18:00)
--- NOTE | 2018-09-11 18:37 | NUR ---
RN NOTES NS AT 75CC/HR RUNNING VIA R UPPER ARM MIDLINE, TOLERATING TF AT 30 CC/HR WELL, NO RESIDUAL NOTED, WILL ENDORSE TO PRODUCT TEST ENGINEER NURSE FOR CONTINUITY OF CARE .
--- NOTE | 2018-09-11 19:40 | NUR ---
RT PT RECEIVED TRACHED ON [facility] VENT ON CHARTED SETTINGS. NO SIGNS OF RESP DISTRESS NOTED AT THIS TIME. AIRWAY PATENT AND SECURED. SANDBLASTER SUPERVISOR DONE. PT SUCTIONED. ALARMS SET AND AUDIBLE. AMBUBAG AT BEDSIDE. VENT CONNECTED TO RED OUTLET. WILL CONT TO MONITOR. Addendum: 09/11/18 at 2020 by MAO HARMON RT Amended: Links added.
[2018-09-11] MEDS: NOREPINEPHRINE 16 MG in IV D5W 500 ML IV PRN (23:20)
[2018-09-12] VITALS (89 sets, daily range): BP systolic 82–148; BP diastolic 33–104
[2018-09-12] MEDS: IV NS 0.9% 1,000 ML IV PRN ×2 (00:54→15:48)
[2018-09-12] MEDS: MIDODRINE HCL (5MG) 5 MG TABLET GT SCH ×3 (01:43→17:03)
[2018-09-12 04:56] LABS: BASOPHILS # (AUTO) 0.1 /CMM (0.0-0.2); BASOPHILS % (AUTO) 0.9 % (0.0-2.0); EOSINOPHILS % (AUTO) 5.2 % (0.0-6.0); HEMATOCRIT 29 % (39-51); HEMOGLOBIN 9.3 g/dL (13.5-17.5); LYMPHOCYTES # (AUTO) 1.7 /CMM (0.8-4.8); LYMPHOCYTES % (AUTO) 11.4 % (20.0-44.0); MEAN CORPUSCULAR HGB CONC 32 g/dl (31.0-36.0); MEAN CORPUSCULAR VOLUME 101 fL (80-96); MONOCYTES # (AUTO) 1.4 /CMM (0.1-1.30); MONOCYTES % (AUTO) 9.5 % (2.0-12.0); NEUTROPHILS # (AUTO) 10.6 /CMM (1.8-8.9); PLATELET COUNT (AUTO) 592 /CMM (150-450); RED BLOOD CELL COUNT(AUTO) 2.85 MIL/uL (4.5-6.0); WHITE BLOOD COUNT (AUTO) 14.5 K/uL (4.3-11.0)
[2018-09-12 05:09] LABS: ALBUMIN 1.8 g/dL (3.4-5.0); BILIRUBIN,TOTAL 0.2 mg/dL (0.2-1.0); CALCIUM, SERUM 9.6 mg/dL (8.5-10.1); CREATININE 2.8 mg/dL (0.6-1.3); MAGNESIUM 2.3 mg/dL (1.8-2.4); TOTAL PROTEIN, SERUM 7.2 g/dL (6.4-8.2)
[2018-09-12 05:25] LABS: POTASSIUM 2.7 mmol/L (3.5-5.1)
[2018-09-12] MEDS: BACLOFEN (10 MG) 10 MG TABLET GT SCH ×3 (05:32→21:01)
[2018-09-12] MEDS: POTASSIUM CL. PREMIX PERIPHER. 50 ML IV SCH ×4 (06:10→09:44)
--- NOTE | 2018-09-12 06:30 | NUR ---
rn notes received patient with eyes close, lying comfortably in bed. In no apparent distress, breathing even and unlabored. vent setting well tolerated. increased tube feeding rate from 35 to 50mls/hour, tolerating well. no residual. duarte cath in place draining clear yellow with no foul odor urine. had 1 bowel movement. no physical manifestation of pain or discomfort. with critical lab result for potassium of 2.7 and bun 95, md aware with orders to infuse 40meq KCL. noted and carried out. started 1st bag, and will endorse to next shift for continuity of care.
--- NOTE | 2018-09-12 08:17 | NUR ---
INITIAL WIGS SALESPERSON NOTE RCVD PT RESPONSIVE TO PAINFUL STIMULI, ABLE TO OPEN EYES TO THIS, SR/SB ON MONITOR, CONTRACTURES BUE/BLE. TOLERATING ORDERED VENT SETTINGS, G-TUBE PLACEMENT VERIFIED BY ASPIRATION OF GASTRIC CONTENTS MINIMAL RESIDUAL OBTAINED. TOLERATING ORDERED TUBE FEEDING RATE. ELLER TO GRAVITY DRAINING CLOUDY, YELLOW URINE WITH SEDIMENT. MULTIPLE WOUNDS COVERED BY DDRY DRESSINGS. IV SITES C/D/I/PATENT, NO S/O INFILTRATION/PHLEBITIS OBSERVED IVF INFUSING ORDERED. PT ON LEVO TITRATING ORDERED.
[2018-09-12] MEDS: DOCUSATE SODIUM LIQ 100 MG/10 ML UDC GT SCH (08:34)
[2018-09-12] MEDS: SEVELAMER CARBONATE 800 MG TABLET PO SCH ×3 (08:34→17:02)
[2018-09-12] MEDS: VIT B CMPLX 3/FA/VIT C/BIOTIN 1 TAB TABLET GT SCH (08:34)
[2018-09-12] MEDS: FERROUS SULFATE UDC 300 MG/5 ML UDC GT SCH ×2 (08:34→17:02)
[2018-09-12] MEDS: HEPARIN SODIUM, PORCINE 5000 UNITS/1 ML VIAL SQ SCH ×2 (08:35→21:03)
[2018-09-12] MEDS: PROSOURCE / PROSTAT (PYXIS) 30 ML UDC GT SCH (08:35)
[2018-09-12] MEDS: MEROPENEM 500 MG in IV NS 0.9% 50 ML IV SCH ×2 (08:35→21:01)
[2018-09-12] MEDS: AMIODARONE HCL 200 MG TABLET GT SCH ×2 (08:36→21:01)
[2018-09-12] MEDS: NOREPINEPHRINE 16 MG in IV D5W 500 ML IV PRN ×2 (08:38→21:02)
[2018-09-12] MEDS: DAKINS HALF STRENGTH (0.25%) 480 ML BOTTLE TOP SCH (09:44)
--- NOTE | 2018-09-12 11:36 | NUR ---
NON LICENSED NUCLEAR EQUIPMENT OPERATOR NOTE PT UNDERGOING DIALYSIS TX, VITAL REMAIN STABLE, WILL CONTINUE TO MONITOR.
[2018-09-12] MEDS: NEPRO 1,000 ML BOTTLE GT PRN (12:08)
[2018-09-12] MEDS ORDERED: DOSING PER PHARMACY-AMIKACI IV XX PRN (16:30)
[2018-09-12] MEDS: ACETAMINOPHEN 325 MG TABLET PO PRN (17:02)
[2018-09-12] MEDS: LACTOBACILLUS RHAMNOSUS GG 1 EACH CAP.SPRINK GT SCH (17:02)
[2018-09-12] MEDS ORDERED: FEE PK DOSING 1 MIN EA MC ONE (17:36)
[2018-09-12] MEDS ORDERED: AMIKACIN 300 MG in IV D5W 100 ML IV ONE (18:00)
--- NOTE | 2018-09-12 18:20 | NUR ---
CALENDER INSPECTOR NOTE PT TOLERATED DIALYSIS WELL, REMAINS ON LOW DOSE LEVO, SR ON MONITOR, REPONSIVE TO PAINFUL STIMULI BY OPENING EYES, TOLERATING ORDERED VENT SETTINGS. ELLER TO GRAVITY DRAINING CLOUDY, YELLOW URINE WITH SEDIMENT, WOUND CARE DONE ORDERED, IV SITES REMAIN C/D/I/PATENT, NO S/O INFILTRATION/PHLEBITIS OBSERVED IVF INFUSING ORDERED. G-TUBE PLACEMENT VERIFIED BY ASPIRATION OF GASTRIC CONTENTS, NO RESIDUAL, PT TOLERATING TUBE FEEDING RATE. PT'S CARE WILL BE ENDORSED TO ANALYSIS INTERN RN FOR CONTINUITY OF CARE. BED IN LOW AND LOCKED POSITION, CALL LIGHT WITHIN REACH, HEAD OF BED ELEVATED.
--- NOTE | 2018-09-12 19:14 | NUR ---
SUPERVISOR WRAPPING ROOM NOTE PT TRANSFERRED TO [facility] VIA WHEELCHAIR WITH SITTER AT BEDSIDE. Addendum: 09/12/18 at 1915 by BINDU ELLIOTT RN DISREGARD ABOVE ENTERED NOTE, WRONG PT
--- NOTE | 2018-09-12 19:30 | NUR ---
ANESTHESIOLOGY TEACHER: RECEIVED CHRONIC VENT TO TRACH PT WT SETTINGS ORDERED. NO ACUTE DISTRESS, NO EVIDENCE OF DISCOMFORT. OBTUNDED, WITHDRAWS TO TOUCH/PAIN STIMULI. SR ON GUILLOTINE OPERATOR. AFEBRILE. GT RUNNING NEPRO AT 50ML/HR AND TOLERATING WELL. CONTINUE ON LEVOPHED AT 2MCG/MIN AND NS AT 75ML/HR. F/C INTACT WT NO URINE DRAINING AT THIS TIME. BUE & BLE ARE SEVERELY CONTRACTED. REPOSITIONED WT PILLOWS, BILAT. ELBOWS & HEELS OFFLOADED. HOB AT 35 DEGREES. BED IN LOW AND LOCKED POSITION, SIDE RAILS UP X2. CONTACT PRECAUTION NOTED. WILL CONTINUE TO MONITOR.
[2018-09-13] VITALS (87 sets, daily range): BP systolic 67–130; BP diastolic 31–101
[2018-09-13] MEDS: ACETAMINOPHEN 325 MG TABLET PO PRN (00:26)
[2018-09-13] MEDS: MIDODRINE HCL (5MG) 5 MG TABLET GT SCH ×3 (00:31→17:25)
--- NOTE | 2018-09-13 04:40 | NUR ---
pt rec'd rec'd trached on [facility] vent settings as charted per md order. no resp distress or sob noted. sx'd for mod amt of pale yellow secretions. alarms are set and audible. vent plugged into red outlet. ambu bag bedside. will continue to monitor Addendum: 09/13/18 at 0441 by ZANDRA NIXON RT Amended: Links added.
[2018-09-13 04:57] LABS: CALCIUM, SERUM 9.6 mg/dL (8.5-10.1)
[2018-09-13] MEDS: IV NS 0.9% 1,000 ML IV PRN ×2 (05:10→17:52)
[2018-09-13] MEDS: BACLOFEN (10 MG) 10 MG TABLET GT SCH ×3 (05:10→21:21)
[2018-09-13] MEDS: NEPRO 1,000 ML BOTTLE GT PRN (05:15)
[2018-09-13 05:21] LABS: POTASSIUM 2.7 mmol/L (3.5-5.1)
[2018-09-13] MEDS: POTASSIUM CL. PREMIX PERIPHER. 50 ML IV SCH ×4 (06:18→09:40)
--- NOTE | 2018-09-13 06:35 | NUR ---
LUNG SPLITTER: NO SIGNIFICANT SHARLENE DURING THE SHIFT. VS WITHIN PT's BASELINE. RECEIVED TEL. ORDER FROM SAKINA FIGUEROA FOR KCL 40 MEQ VIA IV FOR K=2.7. NOTED AND CARRIED OUT. WILL ENDORSE TO DAY SHIFT FOR CONTINUITY OF CARE.
--- NOTE | 2018-09-13 07:05 | NUR ---
OPERATIONAL COMMUNICATION CHIEF INITIAL NOTES PT RECEIVED, TRACH/VENT DEPENDENT. PT OBTUNDED, OPENS HIS EYES SPONTANEOUSLY, AND RESPONSIVE TO TACTILE AND PAINFUL STIMULI. VENT SETTINGS ASSESSED FOR ACCURACY. PT TOLERATING SETTINGS WELL. NO SOB OF ACUTE SIGNS OF DISTRESS NOTED. BREATHING EVEN AND UNLABORED. VSS. RIGHT UPPER ARM MIDLINE AND RIGHT FA NOTED TO BE PATENT AND INTACT. NO REDNESS OR SIGNS OF INFILTRATION NOTED. PT RECEIVING LEVO DRIP AT 2MCG/MIN ALONG WITH NS AT 75ML.HR AND TOLERATING BOTH WELL. WILL TITRATE PT OFF LEVO DRIP IF BP PERMITS. GTUBE NOTED TO BE PATENT AND INTACT. PLACEMENT VERIFIED VIA AUSCULTATION. F/C NOTED TO BE INTACT AND DRAINING TO GRAVITY. BED IN LOW LOCKED POSITION, SIDE RAILS UP X3, WILL CONTINUE TO MONITOR.
--- NOTE | 2018-09-13 08:05 | NUR ---
RT PATIENT REMAINS TRACHED ON [facility] VENT WITH VENT ALARMS CHECKED + AUDIBLE. PATIENT AIRWAY SUCTIONED WITH SMALL AMT OF WHITE SEMI-THICK SECRETIONS. PATIENT NON RESPONSIVE TO VERBAL COMMANDS. AMBU BAG AT [facility]. CONT CURRENT PLAN OF CARE. Addendum: 09/13/18 at 1439 by SHERYL LEROY RT Amended: Links added.
[2018-09-13] MEDS: LACTOBACILLUS RHAMNOSUS GG 1 EACH CAP.SPRINK GT SCH ×2 (08:35→17:25)
[2018-09-13] MEDS: SEVELAMER CARBONATE 800 MG TABLET PO SCH ×3 (08:35→17:24)
[2018-09-13] MEDS: FERROUS SULFATE UDC 300 MG/5 ML UDC GT SCH ×2 (08:36→17:25)
[2018-09-13] MEDS: DOCUSATE SODIUM LIQ 100 MG/10 ML UDC GT SCH (08:36)
[2018-09-13] MEDS: VIT B CMPLX 3/FA/VIT C/BIOTIN 1 TAB TABLET GT SCH (08:36)
[2018-09-13] MEDS: HEPARIN SODIUM, PORCINE 5000 UNITS/1 ML VIAL SQ SCH ×2 (08:36→21:23)
[2018-09-13] MEDS: AMIODARONE HCL 200 MG TABLET GT SCH ×2 (08:36→21:21)
[2018-09-13] MEDS: MEROPENEM 500 MG in IV NS 0.9% 50 ML IV SCH (08:37)
[2018-09-13] MEDS: PROSOURCE / PROSTAT (PYXIS) 30 ML UDC GT SCH (08:37)
[2018-09-13] MEDS: DAKINS HALF STRENGTH (0.25%) 480 ML BOTTLE TOP SCH (08:38)
--- NOTE | 2018-09-13 18:33 | NUR ---
CUSTOMER SUPPORT AGENT CLOSING NOTES PT REMAINS STABLE ON VENT. ALL NEEDS ANTICIPATED FOR AND MET. ALL DUE MEDS GIVEN. PT REPOSITIONED AND TURNED PER PROTOCOL HE CONTINUES TOLERATING TUBE FEEDING WELL. NO RESIDUALS NOTED AT THIS TIME. WOUND CARE RENDERED ORDERED. ELLER CATHETER CARE RENDERED. INVASIVE LINES REMAIN PATENT AND INTACT. VSS. PT'S BP STABLE OFF LEVO DRIP. WILL ENDORSE TO NIGHTSHIFT RN FOR SHARLENE
[2018-09-13] MEDS: LINEZOLID 600 MG TABLET PO SCH (21:22)
--- NOTE | 2018-09-13 22:05 | NUR ---
PT RECEIVED ON VENT VIA TRACH ON CHARTED SETTINGS. AIRWAY PATENT AND SECURE VIA TRACH TIE. PT RESPONSIVE TO PAIN. AMBU BAG AT BEDSIDE ALARMS SET AND AUDIBLE. VENT PLUGGED IN TO RED OUTLET. DISCONNECT ALARMS CHECKED. SUCTIONED A SMALL AMOUNT OF THICK WHITE SECRETIONS. PT RECEIVING NO BREATHING TX AT THIS TIME. HEAD OF BED AT 30 DEGREES. MOUTH SUCTIONED VIA IRENEKAUER. Addendum: 09/13/18 at 2209 by DANIELA WASHINGTON RT Amended: Links added.
[2018-09-14] VITALS (31 sets, daily range): BP systolic 90–142; BP diastolic 44–95
[2018-09-14] MEDS: MIDODRINE HCL (5MG) 5 MG TABLET GT SCH ×3 (01:25→17:04)
[2018-09-14] MEDS: BACLOFEN (10 MG) 10 MG TABLET GT SCH ×3 (05:15→20:18)
[2018-09-14 06:35] LABS: BASOPHILS # (AUTO) 0.1 /CMM (0.0-0.2); BASOPHILS % (AUTO) 1.2 % (0.0-2.0); EOSINOPHILS % (AUTO) 4.2 % (0.0-6.0); HEMATOCRIT 27 % (39-51); HEMOGLOBIN 8.3 g/dL (13.5-17.5); LYMPHOCYTES # (AUTO) 2.1 /CMM (0.8-4.8); LYMPHOCYTES % (AUTO) 18.5 % (20.0-44.0); MEAN CORPUSCULAR HGB CONC 31 g/dl (31.0-36.0); MEAN CORPUSCULAR VOLUME 103 fL (80-96); MONOCYTES # (AUTO) 0.9 /CMM (0.1-1.30); MONOCYTES % (AUTO) 7.9 % (2.0-12.0); NEUTROPHILS # (AUTO) 7.9 /CMM (1.8-8.9); NEUTROPHILS % (AUTO) 68.2 % (43.0-81.0); PLATELET COUNT (AUTO) 330 /CMM (150-450); RED BLOOD CELL COUNT(AUTO) 2.58 MIL/uL (4.5-6.0); WHITE BLOOD COUNT (AUTO) 11.6 K/uL (4.3-11.0)
[2018-09-14 07:24] LABS: ALBUMIN 1.5 g/dL (3.4-5.0); BILIRUBIN,TOTAL 0.2 mg/dL (0.2-1.0); CALCIUM, SERUM 10.1 mg/dL (8.5-10.1); CREATININE 2.1 mg/dL (0.6-1.3); MAGNESIUM 1.9 mg/dL (1.8-2.4); PHOSPHORUS 2.6 mg/dL (2.5-4.9); POTASSIUM 3.5 mmol/L (3.5-5.1); TOTAL PROTEIN, SERUM 6.5 g/dL (6.4-8.2)
--- NOTE | 2018-09-14 07:33 | NUR ---
OPENING PT RECEIVED, TRACH/VENT DEPENDENT. PT OBTUNDED, OPENS HIS EYES SPONTANEOUSLY, AND RESPONSIVE TO TACTILE AND PAINFUL STIMULI. VENT SETTINGS ASSESSED FOR ACCURACY. PT TOLERATING SETTINGS WELL. NO SOB OF ACUTE SIGNS OF DISTRESS NOTED. BREATHING EVEN AND UNLABORED. . PT OFF LEVO DRIP. NS AT 75ML.HR RUNNING THROUGH RIGHT MID-LINE NO REDNESS OR SIGNS OF INFILTRATION NOTED AND TOLERATING BOTH WELL. G-TUBE NOTED TO BE PATENT AND INTACT. PLACEMENT VERIFIED VIA AUSCULTATION. F/C NOTED TO BE INTACT AND DRAINING TO GRAVITY. BED IN LOW LOCKED POSITION, SIDE RAILS UP X3, WILL CONTINUE TO MONITOR.
[2018-09-14] MEDS: SEVELAMER CARBONATE 800 MG TABLET PO SCH ×3 (07:54→18:12)
[2018-09-14] MEDS: DOCUSATE SODIUM LIQ 100 MG/10 ML UDC GT SCH (08:55)
[2018-09-14] MEDS: FERROUS SULFATE UDC 300 MG/5 ML UDC GT SCH ×2 (08:56→17:03)
[2018-09-14] MEDS: AMIODARONE HCL 200 MG TABLET GT SCH ×2 (08:56→20:26)
[2018-09-14] MEDS: LACTOBACILLUS RHAMNOSUS GG 1 EACH CAP.SPRINK GT SCH ×2 (08:56→17:03)
[2018-09-14] MEDS: VIT B CMPLX 3/FA/VIT C/BIOTIN 1 TAB TABLET GT SCH (08:56)
[2018-09-14] MEDS: LINEZOLID 600 MG TABLET PO SCH ×2 (08:58→20:18)
[2018-09-14] MEDS: PROSOURCE / PROSTAT (PYXIS) 30 ML UDC GT SCH (08:58)
[2018-09-14] MEDS: HEPARIN SODIUM, PORCINE 5000 UNITS/1 ML VIAL SQ SCH ×2 (08:59→20:19)
[2018-09-14] MEDS: DAKINS HALF STRENGTH (0.25%) 480 ML BOTTLE TOP SCH (09:00)
[2018-09-14] MEDS: IV NS 0.9% 1,000 ML IV PRN (12:27)
--- NOTE | 2018-09-14 15:17 | NUR ---
PT TRANSPORTED TO [facility] FROM ICU NOW IN ROOM 119 ON VENT SAFELY BROUGHT TO ROOM ON CONTACT ISOLATION FOR CRE URINE AND SPUTUM SENT TO LAB NO STOOL YET TO CULTURE.
--- NOTE | 2018-09-14 17:25 | NUR ---
RECEIVED CRITICAL LAB AMIKACIN 5.9 CALLED [facility] AND SPOKE WITH MD BROWN INFORMING OF BLOOD LEVEL MD ACCEPTED VALUE NO ORDERS RECEIVED WILL CONTINUE TO MONITOR
--- NOTE | 2018-09-14 17:58 | NUR ---
PT RECEIVING DIALYSIS NOW
--- NOTE | 2018-09-14 19:02 | NUR ---
CLOSING PT REMAINS STABLE ON VENT. ALL NEEDS ANTICIPATED FOR AND MET. ALL DUE MEDS GIVEN. PT REPOSITIONED AND TURNED PER PROTOCOL HE CONTINUES TOLERATING TUBE FEEDING WELL. NO RESIDUALS NOTED AT THIS TIME. WOUND CARE RENDERED ORDERED. ELLER CATHETER CARE RENDERED. INVASIVE LINES REMAIN PATENT AND INTACT. VITAL SIGNS STABLE . WILL ENDORSE TO NIGHTSHIFT RN FOR CONTINUITY OF CARE
--- NOTE | 2018-09-14 19:39 | NUR ---
RN NOTE RECEIVED PATIENT DURING DIALYSIS, SPOKE TO [facility] PHARMACIST AMICACIN LEVEL OF 5.9, OK TO ADMINISTER AMICACIN IV PER PHARMACIST, MD IS AWARE, CHARGE NURSE IS AWARE
[2018-09-14] MEDS: AMIKACIN 300 MG in IV D5W 100 ML IV PRN (20:18)
--- NOTE | 2018-09-14 20:30 | NUR ---
RN NOTE REPORT GIVEN TO GEETA, PATIENT IS STABLE
--- NOTE | 2018-09-14 20:35 | NUR ---
TUBERCULOSIS SPECIALIST NOTE RECEIVED PATIENT IN BED ON VENT NO S/S OF DISTRESS. PATIENT HR 83 ON THE MONITOR. NO S/S OF DISTRESS AT THIS TIME. PATIENT ON GTUBE FEEDING LITTLE RESIDUAL NOTED. SAFETY PRECAUTIONS IN PLACE. RN WILL CONTINUE TO MONITOR.
--- NOTE | 2018-09-14 23:37 | NUR ---
PT RECEIVED ON VENT VIA TRACH ON CHARTED SETTINGS. AIRWAY PATENT AND SECURE VIA TRACH TIE. PT RESPONSIVE TO PAIN. AMBU BAG AT BEDSIDE ALARMS SET AND AUDIBLE. VENT PLUGGED IN TO RED OUTLET. DISCONNECT ALARMS CHECKED. SUCTIONED A SMALL AMOUNT OF THICK WHITE SECRETIONS. PT RECEIVING NO BREATHING TX AT THIS TIME. HEAD OF BED AT 30 DEGREES. MOUTH SUCTIONED VIA YANKAUER. Addendum: 09/14/18 at 2337 by ANTHONY RAMOS RT Amended: Links added.
[2018-09-15] VITALS: BP 116/63
[2018-09-15] MEDS: MIDODRINE HCL (5MG) 5 MG TABLET GT SCH ×3 (02:11→17:05)
[2018-09-15] MEDS: IV NS 0.9% 1,000 ML IV PRN (03:30)
[2018-09-15 04:00] VITALS: BP 99/50
--- NOTE | 2018-09-15 05:00 | NUR ---
FISHER TRAWL NET NOTE PATIENT HAD ONE LARGE BOWEL MOVEMENT. DRESSINGS SOILED, AND CHANGED PER CARE ORDER.
[2018-09-15] MEDS: BACLOFEN (10 MG) 10 MG TABLET GT SCH ×3 (05:49→20:33)
[2018-09-15 07:27] LABS: CALCIUM, SERUM 9.5 mg/dL (8.5-10.1); CREATININE 1.5 mg/dL (0.6-1.3); POTASSIUM 3.7 mmol/L (3.5-5.1)
[2018-09-15 08:00] VITALS: BP 133/82
[2018-09-15] MEDS: DOCUSATE SODIUM LIQ 100 MG/10 ML UDC GT SCH (09:10)
[2018-09-15] MEDS: SEVELAMER CARBONATE 800 MG TABLET PO SCH ×2 (09:10→12:19)
[2018-09-15] MEDS: PROSOURCE / PROSTAT (PYXIS) 30 ML UDC GT SCH (09:12)
[2018-09-15] MEDS: LACTOBACILLUS RHAMNOSUS GG 1 EACH CAP.SPRINK GT SCH ×2 (09:12→16:07)
[2018-09-15] MEDS: DAKINS HALF STRENGTH (0.25%) 480 ML BOTTLE TOP SCH (09:13)
[2018-09-15] MEDS: VIT B CMPLX 3/FA/VIT C/BIOTIN 1 TAB TABLET GT SCH (09:13)
[2018-09-15] MEDS: FERROUS SULFATE UDC 300 MG/5 ML UDC GT SCH ×2 (09:13→16:07)
[2018-09-15] MEDS: LINEZOLID 600 MG TABLET PO SCH ×2 (09:13→20:33)
[2018-09-15] MEDS: HEPARIN SODIUM, PORCINE 5000 UNITS/1 ML VIAL SQ SCH ×2 (09:18→20:05)
[2018-09-15] MEDS: AMIODARONE HCL 200 MG TABLET GT SCH ×2 (09:19→20:26)
[2018-09-15] MEDS: NEPRO 1,000 ML BOTTLE GT PRN (09:23)
[2018-09-15] MEDS: ONDANSETRON HCL/PF 4 MG/2 ML VIAL IVP PRN (10:34)
--- NOTE | 2018-09-15 11:00 | NUR ---
rn note pt vomitted x1 at 1000am, pt suctioned, put on side, and cleaned. zofran administered x11 Addendum: 09/15/18 at 1132 by RENETTA PASTOR RN Zofran ivp administered x1, stomach residual after emesis is 110 ml. feeding held for now. will monitor pt.
[2018-09-15] MEDS ORDERED: SILVER NITRATE APPLICATOR 1 EA BOX TP ONE (11:30)
[2018-09-15 12:00] VITALS: BP 116/50
[2018-09-15 16:00] VITALS: BP 126/63
[2018-09-15] MEDS: SEVELAMER CARBONATE 0.8 GM POWD.PACK GT SCH (17:04)
--- NOTE | 2018-09-15 17:57 | NUR ---
RT END OF THE SHIFT REPORT; PT. 57 Y OLD MALE REC. 0700 AM TRACH'D [place] # 8 PT. AWAKE, BUT NOT RESPONSIVE. AND ON VENT WITH NOTED SETTINGS, ALARMS ARE SET AND FUNCTIONAL, EQUAL CHEST RISE NOTED, NO DISTRESS, B/S BILATERALLY RHONCHI AND SUX'D FOR MOD. AMT OF WHITE [place] SECRETIONS. PT, REMAIN STABLE, NO CHANGES, HME CHANGED ATTENDANCE CLERK DONE VENT IN RED OUT LET, AMBU BAG AND EXTRA TRACH AT THE BEDSIDE. REPORT WILL BE PASS TO PM SHIFT. Addendum: 09/15/18 at 1758 by SHAAN CARDOZO RT Amended: Links added.
[2018-09-15 20:00] VITALS: BP 94/33
[2018-09-15] MEDS: FLUCONAZOLE (100 MG) 100 MG TABLET PO SCH (20:33)
[2018-09-16] VITALS: BP 88/41
[2018-09-16] MEDS: MIDODRINE HCL (5MG) 5 MG TABLET GT SCH ×3 (00:52→16:41)
[2018-09-16 04:00] VITALS: BP 101/35
--- NOTE | 2018-09-16 05:23 | NUR ---
RT NOTE: RECEIVED PT ON ORDERED AC VENT SETTINGS. NO RESPIRATORY DISTRESS NOTED. TRACH CHECKED SECURE AND PATENT. SXD AND LAVAGE PT Q2 HOURS AND NEEDED. . EMERGENCY EQUIPMENT @ BEDSIDE. ALARMS CHECKED ON AND AUDIBLE. Addendum: 09/16/18 at 0524 by SONJA ROLLINS RT Amended: Links added.
[2018-09-16] MEDS: BACLOFEN (10 MG) 10 MG TABLET GT SCH ×3 (05:25→21:02)
[2018-09-16 06:52] LABS: BASOPHILS # (AUTO) 0.1 /CMM (0.0-0.2); BASOPHILS % (AUTO) 1.1 % (0.0-2.0); EOSINOPHILS % (AUTO) 5.7 % (0.0-6.0); HEMATOCRIT 26 % (39-51); HEMOGLOBIN 8.1 g/dL (13.5-17.5); LYMPHOCYTES # (AUTO) 2.2 /CMM (0.8-4.8); LYMPHOCYTES % (AUTO) 19.9 % (20.0-44.0); MEAN CORPUSCULAR HGB CONC 31 g/dl (31.0-36.0); MEAN CORPUSCULAR VOLUME 102 fL (80-96); MONOCYTES # (AUTO) 0.8 /CMM (0.1-1.30); NEUTROPHILS # (AUTO) 7.2 /CMM (1.8-8.9); NEUTROPHILS % (AUTO) 66.3 % (43.0-81.0); PLATELET COUNT (AUTO) 417 /CMM (150-450); RED BLOOD CELL COUNT(AUTO) 2.59 MIL/uL (4.5-6.0); WHITE BLOOD COUNT (AUTO) 10.9 K/uL (4.3-11.0)
[2018-09-16 06:58] LABS: CALCIUM, SERUM 9.4 mg/dL (8.5-10.1); CREATININE 1.6 mg/dL (0.6-1.3); MAGNESIUM 1.8 mg/dL (1.8-2.4); PHOSPHORUS 3.1 mg/dL (2.5-4.9); POTASSIUM 3.6 mmol/L (3.5-5.1)
[2018-09-16 08:00] VITALS: BP_SYST 138; BP_SYST 96; BP_DIAS 46; BP_DIAS 91
[2018-09-16] MEDS: HEPARIN SODIUM, PORCINE 5000 UNITS/1 ML VIAL SQ SCH ×2 (09:00→21:02)
[2018-09-16] MEDS: DAKINS HALF STRENGTH (0.25%) 480 ML BOTTLE TOP SCH (09:00)
--- NOTE | 2018-09-16 10:00 | NUR ---
rn note heparin held today for expecting wound debridement. no signs of bleeding.
[2018-09-16] MEDS: FERROUS SULFATE UDC 300 MG/5 ML UDC GT SCH ×2 (10:32→16:41)
[2018-09-16] MEDS: LACTOBACILLUS RHAMNOSUS GG 1 EACH CAP.SPRINK GT SCH ×2 (10:32→16:40)
[2018-09-16] MEDS: DOCUSATE SODIUM LIQ 100 MG/10 ML UDC GT SCH (10:32)
[2018-09-16] MEDS: VIT B CMPLX 3/FA/VIT C/BIOTIN 1 TAB TABLET GT SCH (10:32)
[2018-09-16] MEDS: AMIODARONE HCL 200 MG TABLET GT SCH ×2 (10:32→21:00)
[2018-09-16] MEDS: SEVELAMER CARBONATE 0.8 GM POWD.PACK GT SCH ×3 (10:32→17:34)
[2018-09-16] MEDS: LINEZOLID 600 MG TABLET PO SCH ×2 (10:33→21:01)
[2018-09-16] MEDS: PROSOURCE / PROSTAT (PYXIS) 30 ML UDC GT SCH (10:34)
[2018-09-16 12:00] VITALS: BP 98/60
[2018-09-16 16:00] VITALS: BP 93/40
--- NOTE | 2018-09-16 18:55 | NUR ---
rn note pt had R ischial wound debridement, cultures send to the lab, tolerated well, dressing intact, no s/s bleeding.
[2018-09-16] MEDS: NEPRO 1,000 ML BOTTLE GT PRN (19:27)
[2018-09-16] MEDS: AMIKACIN 300 MG in IV D5W 100 ML IV PRN (19:49)
[2018-09-16 20:00] VITALS: BP 96/36
[2018-09-16] MEDS: FLUCONAZOLE (100 MG) 100 MG TABLET PO SCH (20:37)
[2018-09-17] VITALS (7 sets, daily range): BP systolic 90–127; BP diastolic 35–109
[2018-09-17] MEDS: MIDODRINE HCL (5MG) 5 MG TABLET GT SCH ×3 (02:28→17:37)
[2018-09-17] MEDS: BACLOFEN (10 MG) 10 MG TABLET GT SCH ×3 (05:20→20:47)
[2018-09-17 06:24] LABS: BASOPHILS # (AUTO) 0.1 /CMM (0.0-0.2); EOSINOPHILS % (AUTO) 5.1 % (0.0-6.0); HEMATOCRIT 26 % (39-51); HEMOGLOBIN 8.4 g/dL (13.5-17.5); LYMPHOCYTES # (AUTO) 2.2 /CMM (0.8-4.8); LYMPHOCYTES % (AUTO) 18.5 % (20.0-44.0); MEAN CORPUSCULAR HGB CONC 33 g/dl (31.0-36.0); MEAN CORPUSCULAR VOLUME 101 fL (80-96); MONOCYTES % (AUTO) 8.9 % (2.0-12.0); NEUTROPHILS # (AUTO) 7.8 /CMM (1.8-8.9); NEUTROPHILS % (AUTO) 66.5 % (43.0-81.0); PLATELET COUNT (AUTO) 405 /CMM (150-450); RED BLOOD CELL COUNT(AUTO) 2.54 MIL/uL (4.5-6.0); WHITE BLOOD COUNT (AUTO) 11.7 K/uL (4.3-11.0)
[2018-09-17 06:40] LABS: BILIRUBIN,TOTAL 0.2 mg/dL (0.2-1.0); CALCIUM, SERUM 9.3 mg/dL (8.5-10.1); CREATININE 1.6 mg/dL (0.6-1.3); MAGNESIUM 1.8 mg/dL (1.8-2.4); PHOSPHORUS 2.9 mg/dL (2.5-4.9); POTASSIUM 3.6 mmol/L (3.5-5.1); TOTAL PROTEIN, SERUM 5.8 g/dL (6.4-8.2)
[2018-09-17 06:55] LABS: ALBUMIN 1.2 g/dL (3.4-5.0)
[2018-09-17] MEDS ORDERED: ALBUMIN 25% 12.5 GM/50 ML BOTTLE IV ONE (07:30)
--- NOTE | 2018-09-17 07:30 | NUR ---
TRASH MAN AM NOTES PT RECEIVED, TRACH/VENT DEPENDENT. SETTINGS ORDERED. TOLERATED WELL. PT OBTUNDED, OPENS EYES, RESPONSIVE TO TACTILE AND PAINFUL STIMULI. NO SOB OF ACUTE SIGNS OF DISTRESS NOTED. BREATHING EVEN, EQUAL AND UNLABORED. VSS. RIGHT UPPER ARM MIDLINE FLUSHES WELL SITE CLEAR, CDI DRESSING. GTUBE NEPRO AT 50 ML/HR ONGOING, CHECKED PLACEMENT. [address]UAL. ELLER CATH IN PLACE, DRAINING YELLOW URINE, SEE FLOWSHEET FOR SKIN ISSUES. BED IN LOW LOCKED POSITION, SIDE RAILS UP X3, WILL CONTINUE TO MONITOR.
[2018-09-17] MEDS ORDERED: ALBUMIN 25% 25 GM in PREMIX 1 EA IV ONE (08:00)
[2018-09-17] MEDS: DOCUSATE SODIUM LIQ 100 MG/10 ML UDC GT SCH (09:06)
[2018-09-17] MEDS: SEVELAMER CARBONATE 0.8 GM POWD.PACK GT SCH ×3 (09:06→17:37)
[2018-09-17] MEDS: FERROUS SULFATE UDC 300 MG/5 ML UDC GT SCH ×2 (09:06→17:37)
[2018-09-17] MEDS: VIT B CMPLX 3/FA/VIT C/BIOTIN 1 TAB TABLET GT SCH (09:07)
[2018-09-17] MEDS: LACTOBACILLUS RHAMNOSUS GG 1 EACH CAP.SPRINK GT SCH ×2 (09:07→17:36)
[2018-09-17] MEDS: LINEZOLID 600 MG TABLET PO SCH ×2 (09:07→20:47)
[2018-09-17] MEDS: PROSOURCE / PROSTAT (PYXIS) 30 ML UDC GT SCH (09:07)
[2018-09-17] MEDS: AMIODARONE HCL 200 MG TABLET GT SCH ×2 (09:07→20:48)
[2018-09-17] MEDS: HEPARIN SODIUM, PORCINE 5000 UNITS/1 ML VIAL SQ SCH ×2 (09:08→20:48)
[2018-09-17] MEDS: DAKINS HALF STRENGTH (0.25%) 480 ML BOTTLE TOP SCH (09:10)
--- NOTE | 2018-09-17 09:30 | NUR ---
DIRECTOR RELIGIOUS EDUCATION NOTES DUE MEDS GIVEN. ALBUMIN 25% GIVEN.
--- NOTE | 2018-09-17 10:20 | NUR ---
REFINING EQUIPMENT OPERATOR NOTES REPORT GIVEN TO CADET FOR SHARLENE.
--- NOTE | 2018-09-17 16:30 | NUR ---
RN NOTE: CALLED AND SPOKE WITH DR. Dora JOHNSON REGARDING THE 5 SECOND EPISODE OF V-TACH ON THE PATIENT AND THEN PATIENT WAS BACK TO SINUS RHYTHM 60'S HR. PER DR. Dora JOHNSON, CONTINUE TO MONITOR THE PATIENT AND IF THERE'S ANY CHANGES ON THE AIR EXPORT AGENT CALL EPIC EXCHANGE AGAIN. WILL ENDORSE TO PM CHARGE NURSE FOR CLOSE MONITORING OVERNIGHT.
[2018-09-17] MEDS: FLUCONAZOLE (100 MG) 100 MG TABLET PO SCH (20:47)
[2018-09-17] MEDS: ONDANSETRON HCL/PF 4 MG/2 ML VIAL IVP PRN (21:50)
[2018-09-18] VITALS: BP 103/65
[2018-09-18] MEDS: MIDODRINE HCL (5MG) 5 MG TABLET GT SCH ×4 (01:06→17:07)
[2018-09-18] MEDS: CEFEPIME 2 GM in IV D5W 100 ML IV SCH ×2 (01:08→14:19)
[2018-09-18 04:00] VITALS: BP 114/54
[2018-09-18] MEDS: BACLOFEN (10 MG) 10 MG TABLET GT SCH ×3 (05:53→20:15)
[2018-09-18 06:09] LABS: CALCIUM, SERUM 9.5 mg/dL (8.5-10.1); CREATININE 1.8 mg/dL (0.6-1.3); MAGNESIUM 1.9 mg/dL (1.8-2.4); PHOSPHORUS 3.7 mg/dL (2.5-4.9); POTASSIUM 3.9 mmol/L (3.5-5.1)
[2018-09-18 06:21] LABS: BASOPHILS # (AUTO) 0.1 /CMM (0.0-0.2); BASOPHILS % (AUTO) 0.7 % (0.0-2.0); EOSINOPHILS % (AUTO) 4.6 % (0.0-6.0); HEMATOCRIT 27 % (39-51); HEMOGLOBIN 8.4 g/dL (13.5-17.5); LYMPHOCYTES % (AUTO) 19.2 % (20.0-44.0); MEAN CORPUSCULAR HGB CONC 31 g/dl (31.0-36.0); MEAN CORPUSCULAR VOLUME 101 fL (80-96); MONOCYTES # (AUTO) 0.8 /CMM (0.1-1.30); MONOCYTES % (AUTO) 7.8 % (2.0-12.0); NEUTROPHILS # (AUTO) 7.1 /CMM (1.8-8.9); NEUTROPHILS % (AUTO) 67.7 % (43.0-81.0); PLATELET COUNT (AUTO) 465 /CMM (150-450); RED BLOOD CELL COUNT(AUTO) 2.66 MIL/uL (4.5-6.0); WHITE BLOOD COUNT (AUTO) 10.5 K/uL (4.3-11.0)
[2018-09-18] MEDS: NEPRO 1,000 ML BOTTLE GT PRN (06:28)
--- NOTE | 2018-09-18 07:20 | NUR ---
RN OPENING NOTES PATIENT IN BED, OBTUNDED. ON A VENT, SATING 100%. ON TELE MONITOR, SR. HAS A ELLER CATH WITH CLEAR AND YELLOW URINE. PATIENT HAS MULTIPLE WOUNDS, WILL DO WOUND CARE LATER. ON GTF NEPRO AT 50ML/HR. WAS HELD FOR AWHILE BECAUSE PATIENT HAD 2 EPISODES OF VOMITING PER NOC SHIFT. WAS GIVEN ZOFRAN PRN. HAS A RIGHT UA MIDLINE AND LEFT UA AV SHUNT. HAS A SCHEDULED DIALYSIS TODAY, HAS AN ORDER OF AMIKACIN PRN AFTER DIALYSIS. NOC RN ORDERED THE AMIKACIN TROUGH. NO PAIN OR SOB NOTED. BED LOCKED AND IN LOW POSITION. WILL CONT TO MONITOR CLOSELY
[2018-09-18 08:00] VITALS: BP 103/44
[2018-09-18] MEDS: ACETAMINOPHEN 325 MG TABLET PO PRN (08:31)
[2018-09-18] MEDS: DOCUSATE SODIUM LIQ 100 MG/10 ML UDC GT SCH (08:31)
[2018-09-18] MEDS: FERROUS SULFATE UDC 300 MG/5 ML UDC GT SCH ×2 (08:31→16:20)
[2018-09-18] MEDS: VIT B CMPLX 3/FA/VIT C/BIOTIN 1 TAB TABLET GT SCH (08:31)
[2018-09-18] MEDS: SEVELAMER CARBONATE 0.8 GM POWD.PACK GT SCH ×3 (08:32→17:12)
[2018-09-18] MEDS: LINEZOLID 600 MG TABLET PO SCH ×2 (08:32→20:15)
[2018-09-18] MEDS: AMIODARONE HCL 200 MG TABLET GT SCH ×2 (08:32→20:27)
[2018-09-18] MEDS: LACTOBACILLUS RHAMNOSUS GG 1 EACH CAP.SPRINK GT SCH ×2 (08:32→16:20)
[2018-09-18] MEDS: PROSOURCE / PROSTAT (PYXIS) 30 ML UDC GT SCH (08:39)
[2018-09-18] MEDS: DAKINS HALF STRENGTH (0.25%) 480 ML BOTTLE TOP SCH (08:47)
[2018-09-18 12:00] VITALS: BP_SYST 122; BP_DIAS 17; BP_DIAS 71
--- NOTE | 2018-09-18 15:20 | NUR ---
RN NOTES CALLED PHARMACY REGARDING AMIKACIN SCHEDULED POST DIALYSIS
[2018-09-18 16:00] VITALS: BP 143/63
[2018-09-18] MEDS ORDERED: EPOETIN ALFA (10,000 UNIT) 10,000 UNIT/ML VIAL IV ONE (16:30)
--- NOTE | 2018-09-18 18:43 | NUR ---
RN CLOSING NOTES PATIENT IN BED, OBTUNDED. WOUND CARE DONE TODAY. HD DONE TODAY WITH 800ML OUTPUT. HAS ELLER CATH WITH CLEAR AND YELLOW URINE WITH 200 ML URINE OUTPUT. ON GTF NEPRO AT 50ML/HR. TYLENOL WAS GIVEN THIS AM FOR 99.9F TEMP. AMIKACIN TROUGH 7.9, AMIKACIN ADMINISTERED. ALBUMIN BLOOD DRAW ORDERED BY AP. RESULTS STILL PENDING. BED LOCKED AND IN LOW POSITION. WILL ENDORSE TO NOC SHIFT FOR SHARLENE
[2018-09-18] MEDS: AMIKACIN 300 MG in IV D5W 100 ML IV PRN (18:46)
[2018-09-18] MEDS ORDERED: FLUC100T8 PO (19:21)
[2018-09-18] MEDS ORDERED: LINE600T PO (19:21)
[2018-09-18] MEDS ORDERED: RXAMI XX (19:21)
[2018-09-18 20:00] VITALS: BP 91/43
[2018-09-18] MEDS: FLUCONAZOLE (100 MG) 100 MG TABLET PO SCH (20:15)
--- NOTE | 2018-09-18 21:36 | NUR ---
COMMUNICATIONS REPRESENTATIVE NOTES RECEIVED DISCHARGE ORDER FROM EMIL AT THIS TIME .SPOKE TO KIET YARBROUGH SAID WILL BE DISCHARGE LETY .
--- NOTE | 2018-09-18 23:16 | NUR ---
BOOK OR SCRIPT EDITOR NOTES RECEIVED PTS IN BED OBTUNDED , ON VENT DEPENDENT , ON AC SETTINGS WELL TOLERATED BY PTS .NO SOB NO DISTRESS NOTED , ON TELE ,SR ON THE MONITOR SATING 99% V/S STABLE AFEBRILE , TURNED AND REPOSITION DONE .PTS ON RUDI MIDLINE INTACT AND PATENT ALSO WITH RIC AV SHUNT ,NOTED WITH BRUITT AND THRILL , GT FEEDING INTACT AND PATENT NO RESIDUAL NOTED DUE MEDS GIVEN ORDERED PTS ON F/C DRAINING WITH YELLOWISH URINE OUTPUT . ALL NEEDS ATTENDED TOO CALL LIGHT WITHIN REACH KEPT PTS CLEAN DRY AND COMFORTABLE.
[2018-09-19] VITALS: BP 106/48
[2018-09-19] MEDS: MIDODRINE HCL (5MG) 5 MG TABLET GT SCH ×3 (01:46→16:55)
[2018-09-19 04:00] VITALS: BP 105/52
[2018-09-19] MEDS: BACLOFEN (10 MG) 10 MG TABLET GT SCH ×3 (05:26→20:44)
[2018-09-19 08:00] VITALS: BP 102/43
[2018-09-19] MEDS: DOCUSATE SODIUM LIQ 100 MG/10 ML UDC GT SCH (09:22)
[2018-09-19] MEDS: FERROUS SULFATE UDC 300 MG/5 ML UDC GT SCH ×2 (09:22→16:55)
[2018-09-19] MEDS: VIT B CMPLX 3/FA/VIT C/BIOTIN 1 TAB TABLET GT SCH (09:23)
[2018-09-19] MEDS: LACTOBACILLUS RHAMNOSUS GG 1 EACH CAP.SPRINK GT SCH ×2 (09:23→16:55)
[2018-09-19] MEDS: SEVELAMER CARBONATE 0.8 GM POWD.PACK GT SCH ×3 (09:23→17:10)
[2018-09-19] MEDS: AMIODARONE HCL 200 MG TABLET GT SCH ×2 (09:23→20:46)
[2018-09-19] MEDS: DAKINS HALF STRENGTH (0.25%) 480 ML BOTTLE TOP SCH (09:23)
[2018-09-19] MEDS: LINEZOLID 600 MG TABLET PO SCH ×2 (09:23→20:44)
[2018-09-19] MEDS: PROSOURCE / PROSTAT (PYXIS) 30 ML UDC GT SCH (09:36)
[2018-09-19 12:00] VITALS: BP 96/56
[2018-09-19 16:00] VITALS: BP_SYST 90; BP_DIAS 56; BP_DIAS 75
[2018-09-19] MEDS: NEPRO 1,000 ML BOTTLE GT PRN (17:11)
[2018-09-19 20:00] VITALS: BP 91/46
--- NOTE | 2018-09-19 20:00 | NUR ---
receptionist telephone operator notes received pts in bed obtunded , on ventilator dependent , ac setting well tolerated, no sob no distress noted on tele sr on the monitor , v/s stable afebrile , on blair midline intact and patent, left upper arm av shunt noted with bruit and thrill no bleeding noted. on gt feeding pts on nepro at 50cc/hr well tolerated no residual noted abdomen soft , non distended,f/c intact and patent draining with yellowish urine output.hob elevated at all times for aspiration precaution .suction secretion done and prn. turned and reposition q 2hrs and prn. pts on contact isolation , precautionary measures observed at all times.will continue to monitor pts.
[2018-09-19] MEDS: FLUCONAZOLE (100 MG) 100 MG TABLET PO SCH (20:44)
--- NOTE | 2018-09-19 22:04 | NUR ---
inbound telemarketer notes due meds given as order , all needs attended too call ligjt within reach , kept pts clean dry and comfortable. amiodarone dose not administered d/t heart rate is 59 will continue to monitor.
[2018-09-20] VITALS: BP 99/66
[2018-09-20] MEDS: MIDODRINE HCL (5MG) 5 MG TABLET GT SCH ×3 (01:09→16:36)
[2018-09-20 04:00] VITALS: BP 100/43
[2018-09-20] MEDS: BACLOFEN (10 MG) 10 MG TABLET GT SCH ×3 (04:48→21:36)
--- NOTE | 2018-09-20 06:13 | NUR ---
TEST ENGINEER NUCLEAR EQUIPMENT NOTES PTS REMAIN IN BED ON VENT DEPENDENT WELL TOLERATED NO SOB NO DISTRESS NOTED , V/S STABLE AFEBRILE , NO SHARLENE NOTED AT THIS TIME , WILL ENDORSED TO RN DAY SHIFT FOR CONTINUITY OF CARE
[2018-09-20 06:42] LABS: BASOPHILS # (AUTO) 0.1 /CMM (0.0-0.2); BASOPHILS % (AUTO) 0.7 % (0.0-2.0); EOSINOPHILS % (AUTO) 6.5 % (0.0-6.0); HEMATOCRIT 25 % (39-51); HEMOGLOBIN 8.1 g/dL (13.5-17.5); LYMPHOCYTES # (AUTO) 1.8 /CMM (0.8-4.8); MEAN CORPUSCULAR HGB CONC 32 g/dl (31.0-36.0); MEAN CORPUSCULAR VOLUME 99 fL (80-96); MONOCYTES # (AUTO) 0.9 /CMM (0.1-1.30); MONOCYTES % (AUTO) 6.9 % (2.0-12.0); NEUTROPHILS # (AUTO) 9.4 /CMM (1.8-8.9); NEUTROPHILS % (AUTO) 71.9 % (43.0-81.0); PLATELET COUNT (AUTO) 455 /CMM (150-450); RED BLOOD CELL COUNT(AUTO) 2.56 MIL/uL (4.5-6.0); WHITE BLOOD COUNT (AUTO) 13.1 K/uL (4.3-11.0)
[2018-09-20 06:53] LABS: CALCIUM, SERUM 9.6 mg/dL (8.5-10.1); CREATININE 2.1 mg/dL (0.6-1.3); MAGNESIUM 2.1 mg/dL (1.8-2.4); PHOSPHORUS 3.7 mg/dL (2.5-4.9); POTASSIUM 3.9 mmol/L (3.5-5.1)
--- NOTE | 2018-09-20 07:30 | NUR ---
rn note received pt on bed, obtunded, response to touch, sweating profusely, gown soaked. vs stable, no fever. gown and linen changed. tube feeding running, iv intact, av shunt intact. on mech vent tolerates settings well. duarte in place drainign yellow cloudy urine. safety measures in place will monitor.
[2018-09-20 08:00] VITALS: BP 98/64
[2018-09-20] MEDS: FERROUS SULFATE UDC 300 MG/5 ML UDC GT SCH ×2 (08:33→16:36)
[2018-09-20] MEDS: SEVELAMER CARBONATE 0.8 GM POWD.PACK GT SCH ×3 (08:33→17:37)
[2018-09-20] MEDS: ACETAMINOPHEN 325 MG TABLET PO PRN ×2 (08:36→16:36)
[2018-09-20] MEDS: AMIODARONE HCL 200 MG TABLET GT SCH ×2 (08:36→21:00)
[2018-09-20] MEDS: DOCUSATE SODIUM LIQ 100 MG/10 ML UDC GT SCH (08:36)
[2018-09-20] MEDS: LINEZOLID 600 MG TABLET PO SCH ×2 (08:36→21:36)
[2018-09-20] MEDS: VIT B CMPLX 3/FA/VIT C/BIOTIN 1 TAB TABLET GT SCH (08:36)
[2018-09-20] MEDS: LACTOBACILLUS RHAMNOSUS GG 1 EACH CAP.SPRINK GT SCH ×2 (08:36→16:36)
[2018-09-20] MEDS: DAKINS HALF STRENGTH (0.25%) 480 ML BOTTLE TOP SCH (08:37)
[2018-09-20] MEDS: PROSOURCE / PROSTAT (PYXIS) 30 ML UDC GT SCH (08:37)
--- NOTE | 2018-09-20 10:16 | NUR ---
rn note pt during hd became diaphoretic, per dialysis nurse Davian, pt had low bp and he gave him 500 ml NS bolus. no fever, temp axillary 97.7. hr 54. rr 18. Addendum: 09/20/18 at 1030 by RENETTA PASTOR RN hd failed, pt had only hd for 40 min.
--- NOTE | 2018-09-20 11:30 | NUR ---
rn note pt had not have hd completed so per pharmacy to hold of Amikacin administration today.
[2018-09-20 12:00] VITALS: BP 113/62
--- NOTE | 2018-09-20 12:00 | NUR ---
rn note pt had hr 46, sinus viola, for 20 min, dr Spangler aware, no new orders.
[2018-09-20 16:00] VITALS: BP 97/59
--- NOTE | 2018-09-20 19:55 | NUR ---
RN OPENING NOTES RECEIVED PT IN BED, SLEEPING, OBTUNDED. PT TOLERATING VENT SETTINGS, SATURATING @100%. IN NO APPARENT DISTRESS OF DISCOMFORT AT THIS TIME.RUDI MIDLINE AND L UA AV SHUNT. NEPRO INFUSING AT 50CCS VIA GTUBE. F/C IN PLACE AND DRAINING, BED IN LOWEST LOCKED POSITION, CALL LIGHT WITHIN REACH AT ALL TIMES. WILL CONTINUE TO MONITOR FREQUENTLY.
[2018-09-20 20:00] VITALS: BP 121/44
[2018-09-20] MEDS: FLUCONAZOLE (100 MG) 100 MG TABLET PO SCH (21:36)
[2018-09-21] VITALS: BP 117/46
[2018-09-21] MEDS: MIDODRINE HCL (5MG) 5 MG TABLET GT SCH ×3 (01:15→16:35)
[2018-09-21 04:00] VITALS: BP 109/54
--- NOTE | 2018-09-21 05:12 | NUR ---
PATIENT RECEIVED ON TRACH TO VENT WITH SETTINGS OF AC 16, 500 VT, 40%, +0. SUCTIONED FOR MINIMAL, THIN, YELLOW-CREAM SECRETIONS. AMBU BAG AT BEDSIDE. VENT ALARM AUDIBLE AND VISIBLE. VENT PLUGGED INTO RED OUTLET. Addendum: 09/21/18 at 0513 by SERGEY GRESHAM RT Amended: Links added.
[2018-09-21] MEDS: BACLOFEN (10 MG) 10 MG TABLET GT SCH ×2 (05:36→13:21)
--- NOTE | 2018-09-21 06:22 | NUR ---
RN CLOSING NOTES PT REMAINS IN BED, SLEEPING, OBTUNDED. PT TOLERATING VENT SETTINGS, SATURATING @100%. IN NO APPARENT DISTRESS OF DISCOMFORT AT THIS TIME.RUDI MIDLINE AND L UA AV SHUNT. NEPRO INFUSING AT 50CCS VIA GTUBE 5ML OF RESIDUAL. F/C IN PLACE OUTPUT OF 600. BED IN LOWEST LOCKED POSITION, CALL LIGHT WITHIN REACH AT ALL TIMES. WILL ENDORSE TO DAY NURSE FOR SHARLENE
[2018-09-21 06:50] LABS: BASOPHILS # (AUTO) 0.1 /CMM (0.0-0.2); BASOPHILS % (AUTO) 0.6 % (0.0-2.0); EOSINOPHILS % (AUTO) 6.7 % (0.0-6.0); HEMATOCRIT 26 % (39-51); HEMOGLOBIN 8.2 g/dL (13.5-17.5); LYMPHOCYTES # (AUTO) 2.1 /CMM (0.8-4.8); LYMPHOCYTES % (AUTO) 17.3 % (20.0-44.0); MEAN CORPUSCULAR HGB CONC 31 g/dl (31.0-36.0); MEAN CORPUSCULAR VOLUME 99 fL (80-96); MONOCYTES # (AUTO) 0.6 /CMM (0.1-1.30); MONOCYTES % (AUTO) 5.1 % (2.0-12.0); NEUTROPHILS # (AUTO) 8.3 /CMM (1.8-8.9); NEUTROPHILS % (AUTO) 70.3 % (43.0-81.0); PLATELET COUNT (AUTO) 437 /CMM (150-450); RED BLOOD CELL COUNT(AUTO) 2.66 MIL/uL (4.5-6.0); WHITE BLOOD COUNT (AUTO) 11.9 K/uL (4.3-11.0)
--- NOTE | 2018-09-21 07:15 | NUR ---
NARROW GAUGE OPERATOR OPENING NOTES RECEIVED REPORT FROM AIRPORT LOCATION MANAGER RN. PT REMAINS IN BED, SLEEPING, OBTUNDED. PT TOLERATING VENT SETTINGS, SATURATING @100%. IN NO APPARENT DISTRESS OR DISCOMFORT AT THIS TIME.RUDI MIDLINE AND L UA AV SHUNT. NEPRO INFUSING AT 50CCS VIA GTUBE 5ML OF RESIDUAL. F/C IN PLACE. BED IN LOWEST LOCKED POSITION, CALL LIGHT WITHIN REACH AT ALL TIMES. WILL CONTINUE TO MONITOR.
[2018-09-21 07:19] LABS: CALCIUM, SERUM 9.9 mg/dL (8.5-10.1); MAGNESIUM 2.1 mg/dL (1.8-2.4); PHOSPHORUS 3.2 mg/dL (2.5-4.9); POTASSIUM 3.9 mmol/L (3.5-5.1)
[2018-09-21 08:00] VITALS: BP 113/57
[2018-09-21] MEDS: FERROUS SULFATE UDC 300 MG/5 ML UDC GT SCH ×2 (09:42→16:37)
[2018-09-21] MEDS: LACTOBACILLUS RHAMNOSUS GG 1 EACH CAP.SPRINK GT SCH ×2 (09:42→16:37)
[2018-09-21] MEDS: DOCUSATE SODIUM LIQ 100 MG/10 ML UDC GT SCH (09:42)
[2018-09-21] MEDS: VIT B CMPLX 3/FA/VIT C/BIOTIN 1 TAB TABLET GT SCH (09:42)
[2018-09-21] MEDS: LINEZOLID 600 MG TABLET PO SCH (09:42)
[2018-09-21] MEDS: SEVELAMER CARBONATE 0.8 GM POWD.PACK GT SCH ×2 (09:43→13:21)
[2018-09-21] MEDS: AMIODARONE HCL 200 MG TABLET GT SCH (09:43)
[2018-09-21] MEDS: PROSOURCE / PROSTAT (PYXIS) 30 ML UDC GT SCH (09:45)
[2018-09-21] MEDS: DAKINS HALF STRENGTH (0.25%) 480 ML BOTTLE TOP SCH (09:45)
[2018-09-21 12:00] VITALS: BP 120/68
--- NOTE | 2018-09-21 14:30 | NUR ---
BUSINESS ANALYSIS ANALYST NOTES RECEIVED REPORT FROM CHRISTIANE ALLRED. WILL RESUME CARE.
[2018-09-21 16:00] VITALS: BP 128/72
--- NOTE | 2018-09-21 16:04 | NUR ---
FARM INSTRUCTOR NOTES ENDORSED PT TO CHRISTIANE ALLRED FOR SHARLENE.
[2018-09-21 16:35] VITALS: BP 128/72
--- NOTE | 2018-09-21 18:09 | NUR ---
RT END OF THE SHIFT REPORT; PT. 58 Y OLD MALE REC. 0700 AM TRACH'D [place] # 8 PT. AWAKE, BUT NOT RESPONSIVE. AND ON VENT WITH NOTED SETTINGS, ALARMS ARE SET AND FUNCTIONAL, EQUAL CHEST RISE NOTED, NO DISTRESS, B/S BILATERALLY RHONCHI AND SUX'D FOR MOD. AMT OF [place]ITE [place] SECRETIONS. PT, REMAIN STABLE, NO CHANGES, HME CHANGED SET UP MECHANIC STAMPING MACHINES DONE VENT IN RED OUT LET, AMBU BAG AND EXTRA TRACH AT THE BEDSIDE. REPORT WILL BE PASS TO PM SHIFT. Addendum: 09/21/18 at 1810 by SHAAN CARDOZO RT Amended: Links added.
--- NOTE | 2018-09-21 18:34 | NUR ---
RN D/C NOTES REPORT GIVEN NOEMY RN EARLY CHILDHOOD SERVICES COORDINATOR AT [facility] ACCEPTED PT. PT IS ON A VENTILATOR. LAST VITALS TAKEN. REPORT WAS GIVEN TO LINE CONTROLLER WITH EXITCARE PACKET. PT APPEARS TO BE IN NO DISTRESS AT TIME OF DISCHARGE. WOUNDS REDRESSED AND PT REPOSITIONED.
--- NOTE | 2018-09-21 18:47 | NUR ---
PT D/C AT 0333
[2018-09-21] MEDS ORDERED: CEFTAZIDIME 1 G in IV D5W 50 ML IV SCH (20:00)
== END 2018-09-21 18:45 | DRG 710 ==
LOC: ER 12:48 → ICU 16:45 → TELE1 09-14 14:00
PROVIDERS: ADMIT Internal Medicine; ATTEND Hospitalist
PROC: 5A1955Z Respiratory Ventilation, Greater than 96 Consecutive Hours (ICD-10-PCS; 2018-09-10)
PROC: B546ZZA Ultrasonography of Right Subclavian Vein, Guidance (ICD-10-PCS; 2018-09-12)
PROC: 5A1D70Z Performance of Urinary Filtration, Intermittent, Less than 6 Hours Per Day (ICD-10-PCS; 2018-09-12)
PROC: 05H533Z Insertion of Infusion Device into Right Subclavian Vein, Percutaneous Approach (ICD-10-PCS; 2018-09-12)
PROC: 0KBN0ZZ Excision of Right Hip Muscle, Open Approach (ICD-10-PCS; principal; 2018-09-16)
DX: A41.9 Sepsis, unspecified organism (principal); J96.21 Acute and chronic respiratory failure with hypoxia; R65.21 Severe sepsis with septic shock; Z99.11 Dependence on respirator [ventilator] status; E43 Unspecified severe protein-calorie malnutrition; G93.1 Anoxic brain damage, not elsewhere classified; J18.9 Pneumonia, unspecified organism; G93.40 Encephalopathy, unspecified; L89.893 Pressure ulcer of other site, stage 3; L89.214 Pressure ulcer of right hip, stage 4; M00.9 Pyogenic arthritis, unspecified; R53.2 Functional quadriplegia; Z93.0 Tracheostomy status; N18.6 End stage renal disease; M86.9 Osteomyelitis, unspecified; I12.0 Hypertensive chronic kidney disease with stage 5 chronic kidney disease or end stage renal disease; N39.0 Urinary tract infection, site not specified; K21.9 Gastro-esophageal reflux disease without esophagitis; E87.0 Hyperosmolality and hypernatremia; R13.10 Dysphagia, unspecified; Z93.1 Gastrostomy status; E11.22 Type 2 diabetes mellitus with diabetic chronic kidney disease; E11.69 Type 2 diabetes mellitus with other specified complication; Z99.2 Dependence on renal dialysis; B96.1 Klebsiella pneumoniae [K. pneumoniae] as the cause of diseases classified elsewhere; D63.1 Anemia in chronic kidney disease; Z87.440 Personal history of urinary (tract) infections; Z86.73 Personal history of transient ischemic attack (TIA), and cerebral infarction without residual deficits; Y95 Nosocomial condition; L98.419 Non-pressure chronic ulcer of buttock with unspecified severity; M24.562 Contracture, left knee; M24.561 Contracture, right knee; Z79.01 Long term (current) use of anticoagulants; Z79.899 Other long term (current) drug therapy; L89.620 Pressure ulcer of left heel, unstageable; L89.610 Pressure ulcer of right heel, unstageable; J98.11 Atelectasis; B86 Scabies; L89.612 Pressure ulcer of right heel, stage 2
CPT/HCPCS: 31720; 36415; 36569; 36600; 71045-TC; 80048-TC; 80053-TC; 80061-TC; 80076-TC; 80150; 80202-TC; 81000-TC; 82040-TC; 82803-TC; 83605-TC; 83735-TC; 84100-TC; 84484-TC; 85025-TC; 85730-TC; 87040-TC; 87070-TC; 87081-TC; 87086-TC; 87186-TC; 90935-TC; 94002-TC; 94003-TC; 94760-TC; 94762-TC; 94799-TC; A4216; A4623; A6253; A6403; A7526; G0378; J0278; J0692; J0713; J0885; J1644; J2185; J2405; J3370; J3480; J7030; J7040; J7050; J7060; P9047